=== PATIENT | male | born 1960 | race Hispanic/Latino ===

== ENCOUNTER 2019-12-27 18:03 | Emergency (ER) | payer SELFPAY | END 2019-12-27 20:35 | disposition home or self-care (01) | LOC: EDH 18:03 | DX: R50.9 Fever, unspecified (principal); R05 Cough; J02.9 Acute pharyngitis, unspecified ==

== ENCOUNTER 2024-04-15 20:17 | Inpatient (IN) | payer BC ==
[~2024-04-15] VITALS: Ht 172.7 cm; Wt 81.4 kg
[2024-04-15] MEDS: LACTATED RINGERS 1000ML 1,000 ML IV ONE (20:52)
[2024-04-15 20:55] LABS: BASOPHILS # (AUTO) 0.06 K/uL (0.00-0.20); BASOPHILS % (AUTO) 0.7 % (0.0-5.0); EOSINOPHILS # (AUTO) 0.46 K/uL (0.00-0.70); EOSINOPHILS % (AUTO) 5.6 % (0.0-8.0); HEMATOCRIT 48.1 % (42-54); IMMATURE GRANULOCYTE ABSOLUTE 0.07 K/uL (0-1); LYMPHOCYTES # (AUTO) 2.5 K/uL (1.0-4.8); LYMPHOCYTES % (AUTO) 30.6 % (21.0-51.0); MEAN CORPUSCULAR HEMOGLOBIN 30.8 pg (27.0-33.0); MEAN CORPUSCULAR HGB CONC 33.3 g/dL (32.0-36.0); MEAN CORPUSCULAR VOLUME 92.7 fL (79-99); MONOCYTES # (AUTO) 0.8 K/uL (0.1-1.0); MONOCYTES % (AUTO) 9.5 % (3.0-13.0); NEUTROPHILS # (AUTO) 4.3 K/uL (1.8-7.7); NEUTROPHILS % (AUTO) 52.7 % (40.0-77.0); PLATELET COUNT (AUTO) 257 K/uL (130-400); RED BLOOD CELL COUNT(AUTO) 5.19 MIL/uL (4.50-6.20); RED CELL DISTRIBUTION WIDTH 13.1 % (11.0-15.5); WHITE BLOOD COUNT (AUTO) 8.2 K/uL (4.8-10.8)
[2024-04-15 21:04] LABS: INR 1.07 (0.85-1.15); PROTHROMBIN TIME 11.5 SEC (9.6-11.6)
[2024-04-15 21:05] LABS: PARTIAL THROMBOPLASTIN TIME 27.3 SEC (26.3-35.5)
[2024-04-15 21:07] LABS: CREATININE 1.1 mg/dL (0.5-1.3); MAGNESIUM 1.7 mg/dL (1.80-2.40)
[2024-04-15 21:19] LABS: B-TYPE NATRIURETIC PEPTIDE 210 pg/mL (0-100)
[2024-04-15 21:34] LABS: APPEARANCE,URINE CLEAR (CLEAR); BILIRUBIN,URINE NEGATIVE (NEGATIVE); COLOR,URINE LIGHT-YELLOW (YELLOW); GLUCOSE, URINE (UA) NEGATIVE (NEGATIVE); KETONES,URINE NEGATIVE (NEGATIVE); LEUKOCYTE ESTERASE ,URINE 25 Leu/uL (NEGATIVE); NITRATE,URINE NEGATIVE (NEGATIVE); PROTEIN,URINE NEGATIVE (NEGATIVE); UROBILINOGEN,URINE 0.2 mg/dL (0.2-1.0)
[2024-04-15 21:35] LABS: ADD UA MICROSCOPIC YES
[2024-04-15 21:36] LABS: RBC,URINE 0-1 /HPF (0-1); SQUAMOUS EPITHELIAL CELL,UR RARE /HPF (0-2)
[2024-04-15] MEDS: diazePAM 5 MG/ML 2 ML SYG IV STA (21:40)
[2024-04-15 21:41] LABS: AMPHET/METH SCREEN,URINE NEGATIVE (NEGATIVE); BARBITURATE SCREEN, URINE NEGATIVE (NEGATIVE); BENZODIAZEPINES SCREEN,URINE POSITIVE (NEGATIVE); CANNABINOID SCREEN,URINE POSITIVE (NEGATIVE); COCAINE SCREEN,URINE NEGATIVE (NEGATIVE); OPIATE SCREEN,URINE NEGATIVE (NEGATIVE); PHENCYCLIDINE SCREEN,URINE NEGATIVE (NEGATIVE)
[2024-04-15] MEDS: 0.9%NACL 1000ML 1,000 ML IV ONE (22:42)
[2024-04-15] MEDS: metoPROLOL tartRATE 1 MG/ML 5ML VIAL IV ONE (22:58)
[2024-04-16] MEDS ORDERED: PoTASSium chloRIDE 20MEQ/100ML 100 ML IV PRN
[2024-04-16] MEDS ORDERED: acetaMINOPHEN 325 MG TAB PO PRN
[2024-04-16] MEDS ORDERED: NITROGLYCERIN 0.4 MG SL TAB SL PRN
[2024-04-16] MEDS ORDERED: PoTASSium chl 10% ELIXIR 20MEQ 20 MEQ/15 ML UDCUP PO PRN
[2024-04-16] MEDS ORDERED: guaiFENesin-DM 200/20MG 10ML PO PRN
[2024-04-16 00:04] LABS: SARS-CoV-2, RNA, NAAT NEGATIVE SARS CoV-2 (NEGATIVE)
[2024-04-16 00:08] LABS: INFLUENZA TYPE A Negative For Type A (NEGATIVE); INFLUENZA TYPE B Negative For Type B (NEGATIVE)
[2024-04-16] MEDS: ALPRAZolam 1 MG TAB PO ONE (00:19)
[2024-04-16] MEDS: ALPRAZolam 0.5 MG TABLET PO ONE (00:44)
[2024-04-16] MEDS: FAMOTIDINE 20MG TAB PO SCH (07:32)
[2024-04-16] MEDS: furoSEMIDE 20MG VIAL IV SCH (07:32)
[2024-04-16 08:29] LABS: BASOPHILS # (AUTO) 0.05 K/uL (0.00-0.20); BASOPHILS % (AUTO) 0.6 % (0.0-5.0); EOSINOPHILS % (AUTO) 5.2 % (0.0-8.0); HEMATOCRIT 48.8 % (42-54); IMMATURE GRANULOCYTE ABSOLUTE 0.07 K/uL (0-1); LYMPHOCYTES # (AUTO) 2.6 K/uL (1.0-4.8); MEAN CORPUSCULAR HEMOGLOBIN 30.9 pg (27.0-33.0); MEAN CORPUSCULAR HGB CONC 33.6 g/dL (32.0-36.0); MEAN CORPUSCULAR VOLUME 91.9 fL (79-99); MONOCYTES # (AUTO) 0.7 K/uL (0.1-1.0); NEUTROPHILS % (AUTO) 51.3 % (40.0-77.0); PLATELET COUNT (AUTO) 262 K/uL (130-400); RED BLOOD CELL COUNT(AUTO) 5.31 MIL/uL (4.50-6.20); WHITE BLOOD COUNT (AUTO) 7.8 K/uL (4.8-10.8)
[2024-04-16 08:38] LABS: HEMOGLOBIN A1C 5.5 % (4.0-6.0)
[2024-04-16 08:54] LABS: ALBUMIN 3.7 g/dL (3.5-5.0); BILIRUBIN,TOTAL 0.5 mg/dL (0.2-1.0); CREATININE 1.2 mg/dL (0.5-1.3); MAGNESIUM 1.8 mg/dL (1.80-2.40); POTASSIUM 4.4 mmol/L (3.5-5.1); THYROID STIMULATING HORMONE 2.15 uIU/mL (0.36-3.74)
[2024-04-16 08:58] LABS: B-TYPE NATRIURETIC PEPTIDE 274 pg/mL (0-100)
[2024-04-16] MEDS: metoPROLOL tartRATE 25 MG TAB PO ONE (10:12)
[2024-04-16] MEDS: ALPRAZolam 0.25 MG TABLET PO ONE (13:22)
[2024-04-16 13:33] LABS: MAGNESIUM 1.8 mg/dL (1.80-2.40); POTASSIUM 4.1 mmol/L (3.5-5.1)
[2024-04-16 14:14] LABS: ABG BASE EXCESS -0.8 mmol/L (-2.0-3.0); ABG HCO3 22.6 mmol/L (21.0-28.0); ABG OXYGEN SATURATION 95.6 % (94.0-98.0); ABG PCO2 34 mmHg (35-48); ABG PH 7.439 (7.350-7.450); PO2, ARTERIAL BG 75.1 mmHg (83.0-108.0); VENT MODE, BG RA (ROOM AIR)
[2024-04-16] MEDS: 0.9%NACL 1000ML 1,000 ML IV ONE (18:17)
[2024-04-16] MEDS: metoPROLOL tartRATE 25 MG TAB PO SCH (18:17)
[2024-04-16] MEDS: ALPRAZolam 0.25 MG TABLET PO PRN (19:23)
[2024-04-16] MEDS ORDERED: ALPRAZolam 0.25 MG TABLET PO SCH (21:00)
[2024-04-16] MEDS ORDERED: metoPROLOL tartRATE 25 MG TAB PO SCH (21:00)
[2024-04-16 21:40] VITALS: BP 134/75; PULSE 42; RESP 20; TEMP 98.2
[2024-04-16] MEDS: APIXaban 2.5 MG TABLET PO SCH (21:51)
[2024-04-17] VITALS (8 sets, daily range): BP systolic 98–123; BP diastolic 47–63; PULSE 45–111; RESP 18–20; TEMP 97.3–98.2; O2SAT 96–98
[2024-04-17] MEDS: ondanSETRON 4MG INJ IV PRN (03:07)
[2024-04-17 05:07] LABS: HEMATOCRIT 44.8 % (42-54); MEAN CORPUSCULAR HEMOGLOBIN 31.1 pg (27.0-33.0); MEAN CORPUSCULAR HGB CONC 33.3 g/dL (32.0-36.0); MEAN CORPUSCULAR VOLUME 93.5 fL (79-99); RED BLOOD CELL COUNT(AUTO) 4.79 MIL/uL (4.50-6.20); RED CELL DISTRIBUTION WIDTH 12.9 % (11.0-15.5); WHITE BLOOD COUNT (AUTO) 7.4 K/uL (4.8-10.8)
[2024-04-17] MEDS: metoPROLOL tartRATE 50 MG TAB PO SCH (05:18)
[2024-04-17 05:25] LABS: ALBUMIN 3.1 g/dL (3.5-5.0); BILIRUBIN,TOTAL 0.3 mg/dL (0.2-1.0); CREATININE 1.4 mg/dL (0.5-1.3); MAGNESIUM 1.7 mg/dL (1.80-2.40); POTASSIUM 3.7 mmol/L (3.5-5.1); TOTAL PROTEIN, SERUM 6.9 g/dL (6.0-8.3)
[2024-04-17] MEDS: acetaMINOPHEN 325 MG TAB PO PRN (06:10)
[2024-04-17] MEDS: ALPRAZolam 0.5 MG TABLET PO ONE (06:18)
[2024-04-17] MEDS: PoTASSium chloRIDE 20MEQ ER 20 MEQ ERTAB PO PRN (08:28)
[2024-04-17] MEDS: MAGNESIUM 2GM PREMIX 50ML 50 ML IV PRN (08:29)
[2024-04-17] MEDS ORDERED: ALPRAZolam 0.5 MG TABLET PO PRN (10:00)
[2024-04-17] MEDS: ALPRAZolam 0.5 MG TABLET PO PRN (10:18)
[2024-04-17] MEDS: ALPRAZolam 0.5 MG TABLET ONE (11:02)
[2024-04-17] MEDS: NICOTINE 21 MG/ 24 HR PATCH TD ONE (15:05)
[2024-04-17] MEDS: dilTIAZem 60MG TAB PO SCH (16:59)
[2024-04-17] MEDS: APIXaban 5 MG TABLET PO SCH (19:53)
[2024-04-18] VITALS (8 sets, daily range): BP systolic 99–125; BP diastolic 57–72; PULSE 42–101; RESP 16–20; TEMP 97.5–98.3; O2SAT 97–98
[2024-04-18 04:56] LABS: HEMATOCRIT 44.5 % (42-54); MEAN CORPUSCULAR HGB CONC 32.8 g/dL (32.0-36.0); MEAN CORPUSCULAR VOLUME 94.5 fL (79-99); RED BLOOD CELL COUNT(AUTO) 4.71 MIL/uL (4.50-6.20); RED CELL DISTRIBUTION WIDTH 12.9 % (11.0-15.5); WHITE BLOOD COUNT (AUTO) 6.5 K/uL (4.8-10.8)
[2024-04-18 05:32] LABS: ALBUMIN 3.1 g/dL (3.5-5.0); BILIRUBIN,TOTAL 0.3 mg/dL (0.2-1.0); CREATININE 1.1 mg/dL (0.5-1.3); POTASSIUM 4.1 mmol/L (3.5-5.1); TOTAL PROTEIN, SERUM 6.8 g/dL (6.0-8.3)
[2024-04-18] MEDS: NICOTINE 21 MG/ 24 HR PATCH TD SCH (09:07)
[2024-04-18] MEDS: ALPRAZolam 0.5 MG TABLET PO PRN (20:19)
[2024-04-18] MEDS: dilTIAZem 120MG SR CAP PO SCH (20:19)
[2024-04-19] VITALS: BP 112/66; PULSE 101; RESP 20; TEMP 98
[2024-04-19] MEDS: ALPRAZolam 0.5 MG TABLET PO STA (00:48)
[2024-04-19 04:39] VITALS: BP 93/49; PULSE 96; RESP 20; TEMP 98.4
[2024-04-19 04:42] LABS: CREATININE 1.2 mg/dL (0.5-1.3); MAGNESIUM 1.8 mg/dL (1.80-2.40)
[2024-04-19 07:45] VITALS: BP 119/73; PULSE 78; RESP 19; TEMP 98.2
[2024-04-19 08:00] VITALS: O2SAT 98
[2024-04-19] MEDS: metOPROLol sucCINATE 50 MG TAB.SR.24H PO SCH (08:50)
[2024-04-19 11:29] VITALS: BP 100/57; PULSE 62; RESP 17; TEMP 98.8
[2024-04-19] MEDS ORDERED: METO50TA9 PO (15:05)
[2024-04-19] MEDS ORDERED: APIX5TAB PO (15:05)
[2024-04-19] MEDS ORDERED: DILT120C89 PO (15:05)
[2024-04-19] MEDS ORDERED: PARO-159 PO (15:05)
[2024-04-19 15:34] VITALS: BP 121/72; PULSE 45; RESP 18; TEMP 97.8
== END 2024-04-19 16:00 | disposition home or self-care (01) | DRG 308 ==
LOC: EDH 20:17 → EDHIP 23:36 → 4BH 04-16 17:03
PROVIDERS: ADMIT Hospitalist; ATTEND Hospitalist
DX: I48.92 Unspecified atrial flutter (principal); I50.23 Acute on chronic systolic (congestive) heart failure; N17.9 Acute kidney failure, unspecified; F41.9 Anxiety disorder, unspecified; F14.90 Cocaine use, unspecified, uncomplicated; F19.10 Other psychoactive substance abuse, uncomplicated; Z20.822 Contact with and (suspected) exposure to COVID-19; F17.210 Nicotine dependence, cigarettes, uncomplicated; F31.9 Bipolar disorder, unspecified; I45.9 Conduction disorder, unspecified; J44.9 Chronic obstructive pulmonary disease, unspecified; Z79.01 Long term (current) use of anticoagulants; I25.2 Old myocardial infarction; Z82.49 Family history of ischemic heart disease and other diseases of the circulatory system; Z83.3 Family history of diabetes mellitus
CPT/HCPCS: 36415; 36600; 71045; 71270; 80048; 80053; 80061; 80305; 81001; 82550; 82803; 83036; 83735; 83880; 84443; 84484; 85025; 85027; 85378; 85610; 85730; 87635; 87804; 93005; 93306; G0378; J1940; J2405; J3360; J3475; J3490; J7030

== ENCOUNTER 2024-04-23 19:33 | Inpatient (IN) | payer BC ==
[~2024-04-23] VITALS: Ht 175.3 cm; Wt 91.9 kg
[~2024-04-23 19:33] MED LIST: APIX5TAB PO; DILT120C89 PO; METO50TA9 PO; PARO-159 PO
[2024-04-23] MEDS: NOREPINEPHRIN 4MG/NS 250ML 250 ML IV SCH (20:13)
[2024-04-23 20:17] LABS: BASOPHILS # (AUTO) 0.03 K/uL (0.00-0.20); BASOPHILS % (AUTO) 0.4 % (0.0-5.0); EOSINOPHILS # (AUTO) 0.21 K/uL (0.00-0.70); EOSINOPHILS % (AUTO) 2.5 % (0.0-8.0); HEMATOCRIT 42.3 % (42-54); IMMATURE GRANULOCYTE ABSOLUTE 0.05 K/uL (0-1); LYMPHOCYTES # (AUTO) 2.1 K/uL (1.0-4.8); LYMPHOCYTES % (AUTO) 25.6 % (21.0-51.0); MEAN CORPUSCULAR HEMOGLOBIN 30.7 pg (27.0-33.0); MEAN CORPUSCULAR HGB CONC 33.1 g/dL (32.0-36.0); MEAN CORPUSCULAR VOLUME 92.8 fL (79-99); MONOCYTES # (AUTO) 0.7 K/uL (0.1-1.0); MONOCYTES % (AUTO) 8.1 % (3.0-13.0); NEUTROPHILS # (AUTO) 5.2 K/uL (1.8-7.7); NEUTROPHILS % (AUTO) 62.8 % (40.0-77.0); PLATELET COUNT (AUTO) 205 K/uL (130-400); RED BLOOD CELL COUNT(AUTO) 4.56 MIL/uL (4.50-6.20); RED CELL DISTRIBUTION WIDTH 12.9 % (11.0-15.5); WHITE BLOOD COUNT (AUTO) 8.3 K/uL (4.8-10.8)
[2024-04-23 20:22] LABS: INR 1.17 (0.85-1.15); PROTHROMBIN TIME 12.5 SEC (9.6-11.6)
[2024-04-23 20:24] LABS: CARBON DIOXIDE 21 mmol/L (21-32); CHLORIDE 103 mmol/L (101-111); CREATININE 1.4 mg/dL (0.5-1.3); GLOMERULAR FILTR. RATE CALC 56 mL/min (>90); GLUCOSE,RANDOM 149 mg/dL (70-105); PARTIAL THROMBOPLASTIN TIME 28.6 SEC (26.3-35.5); SODIUM SERUM 135 mmol/L (136-145); UREA NITROGEN, BLOOD 25 mg/dL (7-18)
[2024-04-23 20:33] LABS: ALCOHOL, BLOOD < 3 mg/dL (0-10); CREATINE KINASE, TOTAL 80 U/L (21-232)
[2024-04-23] MEDS: ondanSETRON 4MG INJ ONE (20:54)
[2024-04-23] MEDS: ondanSETRON 4MG INJ IVP ONE (20:54)
[2024-04-23 20:58] LABS: B-TYPE NATRIURETIC PEPTIDE 776 pg/mL (0-100)
[2024-04-23] MEDS: furoSEMIDE 20MG VIAL IV ONE (21:40)
[2024-04-23 21:57] LABS: ABG BASE EXCESS -5.9 mmol/L (-2.0-3.0); ABG HCO3 16.7 mmol/L (21.0-28.0); ABG OXYGEN SATURATION 95.7 % (94.0-98.0); ABG PCO2 26 mmHg (35-48); ABG PH 7.422 (7.350-7.450); CARBON MONOXIDE 0.6 % (0.5-1.5); HHb 4.3; PO2, ARTERIAL BG 79.9 mmHg (83.0-108.0); VENT MODE, BG ROOMAIR (ROOM AIR)
[2024-04-23 22:12] VITALS: PULSE 66; RESP 28
[2024-04-23] MEDS: IpraTROPium/alBUTERol SULFATE 3 ML SOLUTION IH ONE (22:13)
[2024-04-23 23:56] LABS: APPEARANCE,URINE CLOUDY (CLEAR); BILIRUBIN,URINE NEGATIVE (NEGATIVE); COLOR,URINE YELLOW (YELLOW); GLUCOSE, URINE (UA) NEGATIVE (NEGATIVE); KETONES,URINE NEGATIVE (NEGATIVE); LEUKOCYTE ESTERASE ,URINE 75 Leu/uL (NEGATIVE); NITRATE,URINE NEGATIVE (NEGATIVE); PH,URINE 5.5 (5.0-8.0); PROTEIN,URINE 70 mg/dL (NEGATIVE)
[2024-04-23 23:58] LABS: ADD UA MICROSCOPIC YES
[2024-04-24] VITALS (97 sets, daily range): BP systolic 78–127; BP diastolic 23–81; PULSE 66–100; RESP 8–73; TEMP 96.9–98; O2SAT 95–100
[2024-04-24 00:04] LABS: AMPHET/METH SCREEN,URINE POSITIVE (NEGATIVE); BACTERIA,URINE FEW /HPF (None Seen); BARBITURATE SCREEN, URINE NEGATIVE (NEGATIVE); BENZODIAZEPINES SCREEN,URINE POSITIVE (NEGATIVE); CANNABINOID SCREEN,URINE POSITIVE (NEGATIVE); COCAINE SCREEN,URINE NEGATIVE (NEGATIVE); MUCUS,URINE RARE LPF (None Seen); OPIATE SCREEN,URINE NEGATIVE (NEGATIVE); OTHER CASTS, URINE 1 /LPF (None Seen); PHENCYCLIDINE SCREEN,URINE NEGATIVE (NEGATIVE); SQUAMOUS EPITHELIAL CELL,UR RARE /HPF (0-2)
[2024-04-24] MEDS: furoSEMIDE 40MG VIAL IV SCH (00:06)
[2024-04-24] MEDS ORDERED: ondanSETRON 4MG INJ IVP PRN (00:30)
[2024-04-24] MEDS ORDERED: doCUSate SODIUM 100 MG CAP PO PRN (00:30)
[2024-04-24] MEDS ORDERED: acetaMINOPHEN 650 MG SUPPOSITORY RC PRN (00:30)
[2024-04-24] MEDS ORDERED: LACTULOSE 20 GM/30 ML UDCUP PO PRN (00:30)
[2024-04-24] MEDS: IpraTROPium/alBUTERol SULFATE 3 ML SOLUTION IH SCH (00:47)
[2024-04-24] MEDS: LORazepam 2 MG/ML 1 ML VIAL IVP PRN (01:00)
[2024-04-24] MEDS: dexmedeTOMIDine 400MCG/NS100ML IV SCH (02:25)
[2024-04-24] MEDS ORDERED: 0.9%NACL 50ML IV SCH (06:00)
[2024-04-24] MEDS: ZOSYN 3.375GM +NS 50ML IVPB SCH (06:34)
[2024-04-24] MEDS: LACTATED RINGERS 1000ML 1,000 ML IV SCH (06:34)
[2024-04-24 06:55] LABS: BASOPHILS # (AUTO) 0.04 K/uL (0.00-0.20); BASOPHILS % (AUTO) 0.3 % (0.0-5.0); EOSINOPHILS # (AUTO) 0.18 K/uL (0.00-0.70); EOSINOPHILS % (AUTO) 1.5 % (0.0-8.0); LYMPHOCYTES % (AUTO) 33.2 % (21.0-51.0); MEAN CORPUSCULAR HEMOGLOBIN 30.7 pg (27.0-33.0); MEAN CORPUSCULAR VOLUME 93.1 fL (79-99); MONOCYTES # (AUTO) 1.3 K/uL (0.1-1.0); MONOCYTES % (AUTO) 10.7 % (3.0-13.0); NEUTROPHILS # (AUTO) 6.4 K/uL (1.8-7.7); NEUTROPHILS % (AUTO) 53.5 % (40.0-77.0); PLATELET COUNT (AUTO) 241 K/uL (130-400); RED BLOOD CELL COUNT(AUTO) 4.62 MIL/uL (4.50-6.20); RED CELL DISTRIBUTION WIDTH 13.1 % (11.0-15.5); WHITE BLOOD COUNT (AUTO) 11.9 K/uL (4.8-10.8)
[2024-04-24 07:02] LABS: CREATININE 1.5 mg/dL (0.5-1.3); POTASSIUM 4.3 mmol/L (3.5-5.1)
[2024-04-24] MEDS: INSULIN humuLIN R 100 UNIT/ML 3ML SQ SCH (07:30)
[2024-04-24 07:32] LABS: B-TYPE NATRIURETIC PEPTIDE 753 pg/mL (0-100)
[2024-04-24] MEDS ORDERED: acetaMINOPHEN 500 MG TABLET PO PRN (10:00)
[2024-04-24] MEDS ORDERED: PHARMACY COMMUNICATION MISC PRN (10:00)
[2024-04-24] MEDS ORDERED: ondanSETRON 4MG INJ IV PRN (10:00)
[2024-04-24] MEDS ORDERED: HEParin 25,000 UNITS/250ML D5W 250 ML IV SCH (10:00)
[2024-04-24 10:01] LABS: INFLUENZA TYPE A Negative For Type A (NEGATIVE); INFLUENZA TYPE B Negative For Type B (NEGATIVE)
[2024-04-24 10:51] LABS: MAGNESIUM 1.8 mg/dL (1.80-2.40)
[2024-04-24] MEDS: HEParin 25,000 UNITS/250ML D5W 250 ML IV SCH (10:59)
[2024-04-24] MEDS: MAGNESIUM 2GM PREMIX 50ML 50 ML IV PRN (11:41)
[2024-04-24] MEDS: miDODRine HCL 5 MG TABLET PO PRN (13:45)
[2024-04-24] MEDS ORDERED: PHARMACY COMMUNICATION MISC SCH (17:00)
[2024-04-24] MEDS: dilTIAZem 120MG SR CAP PO SCH (21:00)
[2024-04-25] VITALS (59 sets, daily range): BP systolic 90–146; BP diastolic 39–89; PULSE 13–144; RESP 5–63; TEMP 97.4–98.5; O2SAT 91–96
[2024-04-25 03:56] LABS: BASOPHILS # (AUTO) 0.05 K/uL (0.00-0.20); BASOPHILS % (AUTO) 0.6 % (0.0-5.0); EOSINOPHILS # (AUTO) 0.28 K/uL (0.00-0.70); EOSINOPHILS % (AUTO) 3.2 % (0.0-8.0); HEMATOCRIT 41.4 % (42-54); IMMATURE GRANULOCYTE ABSOLUTE 0.05 K/uL (0-1); LYMPHOCYTES # (AUTO) 2.4 K/uL (1.0-4.8); LYMPHOCYTES % (AUTO) 27.1 % (21.0-51.0); MEAN CORPUSCULAR HEMOGLOBIN 30.7 pg (27.0-33.0); MEAN CORPUSCULAR HGB CONC 32.9 g/dL (32.0-36.0); MEAN CORPUSCULAR VOLUME 93.5 fL (79-99); MONOCYTES # (AUTO) 0.6 K/uL (0.1-1.0); MONOCYTES % (AUTO) 6.8 % (3.0-13.0); NEUTROPHILS # (AUTO) 5.4 K/uL (1.8-7.7); NEUTROPHILS % (AUTO) 61.7 % (40.0-77.0); PLATELET COUNT (AUTO) 186 K/uL (130-400); RED BLOOD CELL COUNT(AUTO) 4.43 MIL/uL (4.50-6.20); RED CELL DISTRIBUTION WIDTH 12.9 % (11.0-15.5); WHITE BLOOD COUNT (AUTO) 8.7 K/uL (4.8-10.8)
[2024-04-25 04:27] LABS: CREATININE 1.4 mg/dL (0.5-1.3); MAGNESIUM 1.8 mg/dL (1.80-2.40); PHOSPHORUS 3.7 mg/dL (2.5-4.9); POTASSIUM 3.7 mmol/L (3.5-5.1)
[2024-04-25] MEDS: MULTIVITAMIN TABLET PO SCH (07:43)
[2024-04-25] MEDS: PoTASSium chl 10% ELIXIR 20MEQ 20 MEQ/15 ML UDCUP ONE (07:43)
[2024-04-25] MEDS: FOLic ACID 1 MG TABLET PO SCH (07:43)
[2024-04-25] MEDS: THIAMINE HCL 100 MG/ML 2ML VIAL IM SCH (07:44)
[2024-04-25] MEDS: AMIOdarone 900MG VIAL 150 MG in DEXTROSE 5%-WATER 100 ML IV SCH ×2 (08:29→11:35)
[2024-04-25] MEDS ORDERED: AMIOdarone 900MG VIAL 540 MG in DEXTROSE 5%-WATER 300 ML IV SCH (08:30)
[2024-04-25] MEDS: AMIOdarone 900MG VIAL 360 MG in DEXTROSE 5%-WATER 200 ML IV SCH (08:48)
[2024-04-25] MEDS: PAROXETINE HCL 10 MG PO SCH (08:59)
[2024-04-25] MEDS: miDODRine HCL 5 MG TABLET PO SCH (10:51)
[2024-04-25] MEDS: LORazepam 2 MG/ML 1 ML VIAL IVP PRN ×2 (11:28→20:47)
[2024-04-25] MEDS: IpraTROPium 0.5 MG/2.5 ML INH IH SCH (12:00)
[2024-04-26] VITALS (15 sets, daily range): BP systolic 112–145; BP diastolic 60–80; PULSE 66–149; RESP 2–22; TEMP 98–98.8; O2SAT 93–98
[2024-04-26 04:05] LABS: BASOPHILS # (AUTO) 0.03 K/uL (0.00-0.20); BASOPHILS % (AUTO) 0.4 % (0.0-5.0); EOSINOPHILS # (AUTO) 0.31 K/uL (0.00-0.70); EOSINOPHILS % (AUTO) 4.2 % (0.0-8.0); HEMATOCRIT 38.3 % (42-54); IMMATURE GRANULOCYTE ABSOLUTE 0.06 K/uL (0-1); LYMPHOCYTES # (AUTO) 1.9 K/uL (1.0-4.8); LYMPHOCYTES % (AUTO) 25.9 % (21.0-51.0); MEAN CORPUSCULAR HEMOGLOBIN 30.8 pg (27.0-33.0); MEAN CORPUSCULAR HGB CONC 33.4 g/dL (32.0-36.0); MEAN CORPUSCULAR VOLUME 92.1 fL (79-99); MONOCYTES # (AUTO) 0.7 K/uL (0.1-1.0); MONOCYTES % (AUTO) 9.5 % (3.0-13.0); NEUTROPHILS # (AUTO) 4.4 K/uL (1.8-7.7); NEUTROPHILS % (AUTO) 59.2 % (40.0-77.0); PLATELET COUNT (AUTO) 160 K/uL (130-400); RED BLOOD CELL COUNT(AUTO) 4.16 MIL/uL (4.50-6.20); RED CELL DISTRIBUTION WIDTH 13.1 % (11.0-15.5); WHITE BLOOD COUNT (AUTO) 7.4 K/uL (4.8-10.8)
[2024-04-26 04:18] LABS: INR 1.16 (0.85-1.15); PROTHROMBIN TIME 12.4 SEC (9.6-11.6)
[2024-04-26 04:19] LABS: PARTIAL THROMBOPLASTIN TIME 37.2 SEC (26.3-35.5)
[2024-04-26 04:20] LABS: ALBUMIN 2.9 g/dL (3.5-5.0); BILIRUBIN,TOTAL 0.5 mg/dL (0.2-1.0); CREATININE 1.3 mg/dL (0.5-1.3); PHOSPHORUS 2.7 mg/dL (2.5-4.9); POTASSIUM 3.3 mmol/L (3.5-5.1); TOTAL PROTEIN, SERUM 6.4 g/dL (6.0-8.3)
[2024-04-26] MEDS: acetaMINOPHEN 325 MG TAB PO PRN (04:55)
[2024-04-26] MEDS: HEParin 5,000 UNIT VIAL IV PRN (05:27)
[2024-04-26] MEDS ORDERED: PoTASSium chloRIDE 20MEQ/100ML 100 ML IV PRN (07:00)
[2024-04-26] MEDS ORDERED: PoTASSium chl 10% ELIXIR 20MEQ 20 MEQ/15 ML UDCUP PO PRN (07:00)
[2024-04-26] MEDS: metOPROLol sucCINATE 25 MG TAB.SR.24H PO SCH (09:00)
[2024-04-26] MEDS: metOPROLol sucCINATE 25 MG TAB.SR.24H PO ONE (11:06)
[2024-04-26] MEDS: metoPROLOL tartRATE 1 MG/ML 5ML VIAL IV ONE (13:22)
[2024-04-26] MEDS: metoPROLOL tartRATE 25 MG TAB PO SCH (13:26)
[2024-04-26] MEDS ORDERED: metOPROLol sucCINATE 25 MG TAB.SR.24H PO SCH (14:00)
[2024-04-26] MEDS: chlordiazePOXIDE HCL 25 MG CAP PO PRN ×2 (14:48→17:52)
[2024-04-26] MEDS: PoTASSium chloRIDE 20MEQ ER 20 MEQ ERTAB PO PRN (17:51)
[2024-04-26] MEDS: chlordiazePOXIDE HCL 25 MG CAP PO SCH (21:26)
[2024-04-27] VITALS (14 sets, daily range): BP systolic 117–149; BP diastolic 55–84; PULSE 43–137; RESP 18–22; TEMP 98.2–98.6; O2SAT 94–98
[2024-04-27] MEDS: LORazepam 2 MG/ML 1 ML VIAL IVP ONE (03:19)
[2024-04-27 07:16] LABS: HEMATOCRIT 42.2 % (42-54); MEAN CORPUSCULAR HEMOGLOBIN 31.4 pg (27.0-33.0); MEAN CORPUSCULAR HGB CONC 33.6 g/dL (32.0-36.0); MEAN CORPUSCULAR VOLUME 93.4 fL (79-99); RED BLOOD CELL COUNT(AUTO) 4.52 MIL/uL (4.50-6.20); WHITE BLOOD COUNT (AUTO) 7.2 K/uL (4.8-10.8)
[2024-04-27 07:31] LABS: BILIRUBIN,TOTAL 0.4 mg/dL (0.2-1.0); CREATININE 1.1 mg/dL (0.5-1.3); PHOSPHORUS 2.7 mg/dL (2.5-4.9); POTASSIUM 3.7 mmol/L (3.5-5.1); TOTAL PROTEIN, SERUM 6.8 g/dL (6.0-8.3)
[2024-04-27] MEDS: AMIOdarone 200 MG TABLET PO SCH (08:48)
[2024-04-27] MEDS: APIXaban 5 MG TABLET PO SCH (08:50)
[2024-04-27] MEDS: metOPROLol sucCINATE 50 MG TAB.SR.24H PO SCH (08:50)
[2024-04-27 13:03] LABS: INR 1.16 (0.85-1.15); PROTHROMBIN TIME 12.4 SEC (9.6-11.6)
[2024-04-27] MEDS: chlordiazePOXIDE HCL 25 MG CAP PO ONE (13:19)
[2024-04-27] MEDS: TEMAZepam 15 MG CAPSULE PO PRN (22:08)
[2024-04-27] MEDS: PROMETHAZINE HCL 25 MG TABLET PO PRN (22:09)
[2024-04-28] VITALS (11 sets, daily range): BP systolic 96–151; BP diastolic 57–94; PULSE 43–84; RESP 18–22; TEMP 97.1–98.8; O2SAT 96–99
[2024-04-28 03:37] LABS: HEMATOCRIT 44.1 % (42-54); MEAN CORPUSCULAR HEMOGLOBIN 30.5 pg (27.0-33.0); MEAN CORPUSCULAR HGB CONC 33.1 g/dL (32.0-36.0); MEAN CORPUSCULAR VOLUME 92.3 fL (79-99); RED BLOOD CELL COUNT(AUTO) 4.78 MIL/uL (4.50-6.20); WHITE BLOOD COUNT (AUTO) 6.6 K/uL (4.8-10.8)
[2024-04-28] MEDS: NICOTINE 21 MG/ 24 HR PATCH TD PRN (03:45)
[2024-04-28 04:01] LABS: ALBUMIN 3.3 g/dL (3.5-5.0); BILIRUBIN,TOTAL 0.4 mg/dL (0.2-1.0); CREATININE 1.2 mg/dL (0.5-1.3); MAGNESIUM 1.8 mg/dL (1.80-2.40); POTASSIUM 3.5 mmol/L (3.5-5.1); TOTAL PROTEIN, SERUM 7.4 g/dL (6.0-8.3)
[2024-04-28] MEDS: NICOTINE 21 MG/ 24 HR PATCH TD SCH (13:30)
[2024-04-28] MEDS: LORazepam 2 MG/ML 1 ML VIAL IVP PRN (17:11)
[2024-04-28] MEDS: furoSEMIDE 20 MG TABLET PO SCH (17:11)
[2024-04-29] VITALS: BP 114/85; PULSE 76; RESP 21; TEMP 98
[2024-04-29 04:00] VITALS: BP 108/56; PULSE 68; RESP 21; TEMP 98
[2024-04-29 07:31] VITALS: PULSE 60; RESP 20
[2024-04-29 07:34] VITALS: PULSE 60; RESP 20; O2SAT 100
[2024-04-29 08:00] VITALS: O2SAT 98
[2024-04-29] MEDS: metOPROLol sucCINATE 50 MG TAB.SR.24H PO SCH (08:24)
[2024-04-29 08:30] VITALS: BP 143/76; PULSE 69; RESP 18; TEMP 98.3
[2024-04-29] MEDS ORDERED: FURO20TA6 PO (13:17)
[2024-04-29] MEDS ORDERED: APIX5TAB PO (13:17)
[2024-04-29] MEDS ORDERED: AMIO200T44 PO (13:17)
[2024-04-29] MEDS ORDERED: METO50TA9 PO (13:17)
[2024-04-29] MEDS ORDERED: NICO-777 TD (13:17)
== END 2024-04-29 14:40 | disposition home or self-care (01) | DRG 871 ==
LOC: EDH 19:33 → EDHIP 22:31 → 2BH 04-24 01:18 → 2DH 04-25 12:50
PROVIDERS: ADMIT Internal Medicine; ATTEND Internal Medicine
DX: A41.9 Sepsis, unspecified organism (principal); I50.43 Acute on chronic combined systolic (congestive) and diastolic (congestive) heart failure; R65.21 Severe sepsis with septic shock; E87.1 Hypo-osmolality and hyponatremia; I13.0 Hypertensive heart and chronic kidney disease with heart failure and stage 1 through stage 4 chronic kidney disease, or unspecified chronic kidney disease; J44.1 Chronic obstructive pulmonary disease with (acute) exacerbation; N30.00 Acute cystitis without hematuria; N17.9 Acute kidney failure, unspecified; F15.20 Other stimulant dependence, uncomplicated; I48.92 Unspecified atrial flutter; I47.20 Ventricular tachycardia, unspecified; I95.9 Hypotension, unspecified; N18.9 Chronic kidney disease, unspecified; I48.91 Unspecified atrial fibrillation; F41.9 Anxiety disorder, unspecified; H57.04 Mydriasis; E83.51 Hypocalcemia; E83.42 Hypomagnesemia; E86.0 Dehydration; R73.9 Hyperglycemia, unspecified; F17.210 Nicotine dependence, cigarettes, uncomplicated; F19.10 Other psychoactive substance abuse, uncomplicated; E66.9 Obesity, unspecified; Z79.01 Long term (current) use of anticoagulants; Z79.899 Other long term (current) drug therapy
CPT/HCPCS: 36415; 36600; 71045; 76770; 80048; 80053; 80305; 81001; 82435; 82533; 82550; 82803; 82947; 82948; 83605; 83735; 83880; 84100; 84132; 84145; 84295; 84443; 84484; 85018; 85025; 85027; 85378; 85610; 85730; 87086; 87426; 87804; 93005; 93970; 94640; 94660; 94664; 99291; A4357; G0378; J0282; J1644; J1815; J1940; J2060; J2405; J2543; J3411; J3475; J3490; J7060; Q0169

== ENCOUNTER 2024-06-19 11:55 | Inpatient (IN) | payer BC, MEDICARE ==
[~2024-06-19] VITALS: Ht 175.3 cm; Wt 88.5 kg
[~2024-06-19 11:55] MED LIST changes: +AMIO200T44 PO; -DILT120C89 PO; +FURO20TA6 PO; +NICO-777 TD
[2024-06-19 12:22] LABS: BASOPHILS # (AUTO) 0.02 K/uL (0.00-0.20); BASOPHILS % (AUTO) 0.3 % (0.0-5.0); EOSINOPHILS # (AUTO) 0.16 K/uL (0.00-0.70); HEMATOCRIT 45.2 % (42-54); IMMATURE GRANULOCYTE ABSOLUTE 0.03 K/uL (0-1); LYMPHOCYTES # (AUTO) 1.1 K/uL (1.0-4.8); LYMPHOCYTES % (AUTO) 13.5 % (21.0-51.0); MEAN CORPUSCULAR HEMOGLOBIN 30.5 pg (27.0-33.0); MEAN CORPUSCULAR VOLUME 92.4 fL (79-99); MONOCYTES # (AUTO) 0.6 K/uL (0.1-1.0); MONOCYTES % (AUTO) 7.3 % (3.0-13.0); NEUTROPHILS % (AUTO) 76.5 % (40.0-77.0); PLATELET COUNT (AUTO) 233 K/uL (130-400); RED BLOOD CELL COUNT(AUTO) 4.89 MIL/uL (4.50-6.20); RED CELL DISTRIBUTION WIDTH 13.2 % (11.0-15.5); WHITE BLOOD COUNT (AUTO) 7.9 K/uL (4.8-10.8)
--- NOTE | 2024-06-19 12:29 | EKG ---
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
[2024-06-19 12:42] LABS: APPEARANCE,URINE CLEAR (CLEAR); BILIRUBIN,URINE NEGATIVE (NEGATIVE); COLOR,URINE COLORLESS (YELLOW); GLUCOSE, URINE (UA) NEGATIVE (NEGATIVE); KETONES,URINE NEGATIVE (NEGATIVE); LEUKOCYTE ESTERASE ,URINE 25 Leu/uL (NEGATIVE); NITRATE,URINE NEGATIVE (NEGATIVE); OCCULT BLOOD,URINE NEGATIVE (NEGATIVE); PH,URINE 6.5 (5.0-8.0); PROTEIN,URINE NEGATIVE (NEGATIVE); UROBILINOGEN,URINE 0.2 mg/dL (0.2-1.0)
[2024-06-19 12:48] LABS: CREATININE 0.8 mg/dL (0.5-1.3); POTASSIUM 4.4 mmol/L (3.5-5.1)
[2024-06-19 12:52] LABS: AMPHET/METH SCREEN,URINE POSITIVE (NEGATIVE); BARBITURATE SCREEN, URINE NEGATIVE (NEGATIVE); BENZODIAZEPINES SCREEN,URINE POSITIVE (NEGATIVE); CANNABINOID SCREEN,URINE POSITIVE (NEGATIVE); COCAINE SCREEN,URINE POSITIVE (NEGATIVE); OPIATE SCREEN,URINE NEGATIVE (NEGATIVE); PHENCYCLIDINE SCREEN,URINE NEGATIVE (NEGATIVE)
[2024-06-19 12:53] LABS: B-TYPE NATRIURETIC PEPTIDE 720 pg/mL (0-100)
[2024-06-19 13:16] LABS: RBC,URINE 0-1 /HPF (0-1)
--- NOTE | 2024-06-19 13:20 | NUR ---
PT WAS REPOSITIONED IN BED, REPORTS FEELING SHORT OF BREATH BECAUSE HIS NOSTRILS FEEL OCCLUDED
[2024-06-19 13:31] LABS: COVID19 (SARS ANTIGEN RAPID) PRESUMPTIVE NEGATIVE (NEGATIVE); INFLUENZA TYPE A Negative For Type A (NEGATIVE); INFLUENZA TYPE B Negative For Type B (NEGATIVE)
--- NOTE | 2024-06-19 13:53 | HMCIMG ---
CHEST 2VWS HISTORY: Shortness of breath COMPARISON: 06/02/2024 FINDINGS: Frontal and lateral projections of the chest were obtained. There is no acute pulmonary infiltrates or failure. Prominent interstitial markings are seen. There The heart is borderline enlarged. No evidence of aortic calcification is seen. Degenerative changes are seen of the thoracolumbar spine. IMPRESSION: 1. No acute pulmonary infiltrates.
--- NOTE | 2024-06-19 14:14 | ERN ---
General Chief Complaint: Shortness of Breath Stated Complaint: SOB Time Seen by MD: 12:03 Time Seen by Midlevel: 12:03 Source: patient History of Present Illness Initial Comments 64-year-old male presents to the ED by EMS due to shortness of breath. Patient reports onset one week. Denies further associated aided symptoms. Patient reports drug use, daily alcohol consumption, and daily smoking. PMHx HTN Allergies: Coded Allergies: No Known Drug Allergies (Unverified Allergy, Unknown, 04/16/24) Home Meds Active Scripts Nicotine (Nicotine Patch) 21 Mg/24 Hour Patch.td24, 21 MG TD DAILY for 30 Days, #30 PATCH 1 Refill Prov:RICK COX MD 04/29/24 Metoprolol Succinate (Toprol Xl) 50 Mg Tab.er.24h, 50 MG PO DAILY for 30 Days, #30 TAB 1 Refill Prov:RICK COX MD 04/29/24 Furosemide (Lasix 20Mg Tab) 20 Mg Tablet, 20 MG PO BID@09,17 for 30 Days, #60 TAB 1 Refill Prov:RICK COX MD 04/29/24 Apixaban (Eliquis) 5 Mg Tablet, 5 MG PO BID for 30 Days, #60 TAB 1 Refill Prov:RICK COX MD 04/29/24 Amiodarone HCl (Pacerone) 200 Mg Tablet, 400 MG PO BID for 30 Days, #30 TAB 1 Refill Take 400 mg PO bid for 7 days, then 200 mg PO daily Prov:RICK COX MD 04/29/24 Paroxetine HCl (Paxil) 10 Mg Tab, 10 MG PO DAILY for anxiety for 30 Days, #30 TAB 0 Refills Prov:ESTELITA HALL MD 04/19/24 Apixaban (Eliquis) 5 Mg Tablet, 5 MG PO BID for atrial flutter MDD 10 for 30 Days, #60 TAB Prov:ESTELITA HALL MD 04/19/24 Past Medical History Past Medical History: Hypertension Past Surgical History: None ROS Dictation Constitutional: Negative for fever,chills, and weight loss Eyes: Negative for injury, pain,redness, and discharge ENT: Negative for injury,pain or swelling Cardiovascular: Negative for chest pain, palpitations, and edema Respiratory: Positive for shortness of breath Negative for cough, and wheezing, Abdomen/GI: Negative for abdominal pain, nausea, vomiting, diarrhea, and constipation Back: Negative for injury and pain : Negative for painful urination, bleeding or discharge MS/Extremity: Negative for injury and deformity Skin: Negative for rash, and discoloration Neuro: Negative for headache, weakness, numbness, tingling, and seizure Psych: Negative for suicide ideation, homicidal ideation, and hallucinations Physical Exam Physical Exam Dictation General: awake, alert, no acute distress Head/Face: Normocephalic, atraumatic Eyes: normal conjunctiva ENT: oral cavity clear, oral mucosa moist Neck: Normal range of motion, supple Cardiovascular: RRR, normal S1/S2 Respiratory: CTAB, no respiratory distress, no rales or wheezes Abdomen: Soft, non-tender, non-distended, normal bowel sounds, no guarding or rebound. Skin: Warm, dry, normal turgor, no rash MS/Extremity: Pulses equal, no cyanosis, neurovascular intact, FROM Neuro: COAx4, GCS 15, no neurological deficits, Psych: Normal behavior, mood, and affect normal Results Laboratory and Microbiology Lab and Micro Result Laboratory Tests Test 06/19/24 12:15 06/19/24 12:23 06/19/24 12:35 White Blood Count 7.9 K/uL (4.8-10.8) Red Blood Count 4.89 MIL/uL (4.50-6.20) Hemoglobin 14.9 g/dL (14.0-18.0) Hematocrit 45.2 % (42-54) Mean Corpuscular Volume 92.4 fL (79-99) Mean Corpuscular Hemoglobin 30.5 pg (27.0-33.0) Mean Corpuscular Hemoglobin Concent 33.0 g/dL (32.0-36.0) Red Cell Distribution Width 13.2 % (11.0-15.5) Platelet Count 233 K/uL (130-400) Mean Platelet Volume 9.5 fL (7.5-10.5) Immature Granulocyte % (Auto) 0.4 % (0-1) Neutrophils (%) (Auto) 76.5 % (40.0-77.0) Lymphocytes (%) (Auto) 13.5 % (21.0-51.0) L Monocytes (%) (Auto) 7.3 % (3.0-13.0) Eosinophils (%) (Auto) 2.0 % (0.0-8.0) Basophils (%) (Auto) 0.3 % (0.0-5.0) Neutrophils # (Auto) 6.0 K/uL (1.8-7.7) Lymphocytes # (Auto) 1.1 K/uL (1.0-4.8) Monocytes # (Auto) 0.6 K/uL (0.1-1.0) Eosinophils # (Auto) 0.16 K/uL (0.00-0.70) Basophils # (Auto) 0.02 K/uL (0.00-0.20) Absolute Immature Granulocyte (auto 0.03 K/uL (0-1) Nucleated Red Blood Cells 0.0 % (0.0-0.19) Sodium Level 138 mmol/L (136-145) Potassium Level 4.4 mmol/L (3.5-5.1) Chloride Level 105 mmol/L (101-111) Carbon Dioxide Level 26 mmol/L (21-32) Blood Urea Nitrogen 10 mg/dL (7-18) Creatinine 0.8 mg/dL (0.5-1.3) Glomerular Filtration Rate Calc 98 mL/min (>90) Random Glucose 103 mg/dL (70-105) Total Calcium 9.1 mg/dL (8.5-10.1) Troponin I High Sensitivity 25 ng/L (4-75) B-Type Natriuretic Peptide 720 pg/mL (0-100) H Urine Color COLORLESS (YELLOW) Urine Appearance CLEAR (CLEAR) Urine pH 6.5 (5.0-8.0) Urine Specific [place] 1.005 (1.001-1.031) Urine Protein NEGATIVE mg/dL (NEGATIVE) Urine Glucose (UA) NEGATIVE mg/dL (NEGATIVE) Urine Ketones NEGATIVE mg/dL (NEGATIVE) Urine Occult Blood NEGATIVE (NEGATIVE) Urine Nitrate NEGATIVE (NEGATIVE) Urine Bilirubin NEGATIVE mg/dL (NEGATIVE) Urine Urobilinogen 0.2 mg/dL (0.2-1.0) Urine Leukocyte Esterase 25 Lu/uL (NEGATIVE) H Urine RBC 0-1 /HPF (0-1) Urine WBC 2-5 /HPF (0-1) H Urine Bacteria None /HPF (None Seen) Urine Opiates Screen NEGATIVE (NEGATIVE) Urine Barbiturates Screen NEGATIVE (NEGATIVE) Urine Phencyclidine Screen NEGATIVE (NEGATIVE) Urine Amphetamines Screen POSITIVE (NEGATIVE) H Urine Benzodiazepines Screen POSITIVE (NEGATIVE) H Urine Cocaine Screen POSITIVE (NEGATIVE) H Urine Marijuana (THC) Screen POSITIVE (NEGATIVE) H Influenza Type A Antigen Negative For Type A Influenza Type B Antigen Negative For Type B SARS-CoV-2 Antigen (Rapid) PRESUMPTIVE NEGATIVE Labs Reviewed?: Yes EKG/XRAY/US/CT/MRI EKG Comment Date: 06/19/2024 Time: 12:27 Rate: 126 EKG interpretation: Atrial flutter with 2:1 AV block, left atrial fascicular block, no STEMI Reviewed by ED Attending MDM MDM: Differential diagnosis: CHF exacerbation, pneumonia, drug abuse Rationale: 64-year-old male presents to the ED by EMS due to shortness of breath. Patient reports onset one week. Denies further associated aided symptoms. Patient reports drug use, daily alcohol consumption, and daily smoking. PMHx HTN Labs obtained indicate BNP 720. Drug screen positive for benzos, cocaine, marijuana, amphetamines. Patient currently on 2 L of O2 satting at 96%. Abnormal EKG. Patient was educated on findings and diagnosis and decision for admission. Patient verbalized understanding and agreed with admission. Case discussed with hospitalist who accepted admission. Previous outside records reviewed: Old ER visits. Risk of complication and/or morbidity or mortality of patient management: None Medications-Per medication reconciliation Need for hospitalization: Patient does meet criteria for hospitalization. Need for emergency major/minor surgery: No There are no social concerns with this patient. Prescription drug management Prescriptions will include symptomatic care Patient's prior external medical records from other ER visits were reviewed by me as indicated. Prior testing and results from previous visits were reviewed. Prior tests were taken into account with medical decision making and resource utilization, independent historian/historians were used to obtain complete medical history. I independently interpreted the test that were performed, results were reviewed by me and considered findings on radiology if ordered. Medical management and examination interpretation discussions were had by me with other qualified healthcare professionals as indicated for the patient's care. ED Course Orders Procedure Category Date Status Time Cbc With Differential LAB 06/19/24 Complete 12:07 Basic Metabolic Panel LAB 06/19/24 Complete 12:07 Urinalysis LAB 06/19/24 Complete W/Microscopic 12:07 B-Type Natriuretic LAB 06/19/24 Complete Peptide 12:07 Chest 2vws RAD 06/19/24 Resulted 12:07 Troponin I High LAB 06/19/24 Complete Sensitivity 12:07 12 Lead Ekg Tracing- EKG 06/19/24 Complete Technical 12:07 Covid19 (Sars Antigen LAB 06/19/24 Complete Rapid) 12:07 Influenza Type A & B, LAB 06/19/24 Complete Rapid 12:07 Drug Screen Urine LAB 06/19/24 Complete 12:18 Vital Signs Date Time Temp Pulse Resp B/P (MAP) Pulse Ox O2 Delivery O2 Flow Rate FiO2 06/19/24 13:17 123 20 107/73 97 Room Air* 0 21 06/19/24 11:57 97.9 117 22 134/86 95 Room Air 0 Critical Care Note Critical Time: 30 minutes Comments Critical Care Procedure Note Authorized and Performed by: Total critical care time: Approximately 36 minutes Due to a high probability of clinically significant, life threatening deterioration, the patient required my highest level of preparedness to intervene emergently and I personally spent this critical care time directly and personally managing the patient. This critical care time included obtaining a history; examining the patient; pulse oximetry; ordering and review of studies; arranging urgent treatment with development of a management plan; evaluation of patient's response to treatment; frequent reassessment; and, discussions with other providers. This critical care time was performed to assess and manage the high probability of imminent, life-threatening deterioration that could result in multi-organ failure. It was exclusive of separately billable procedures and treating other patients and teaching time. Please see MDM section and the rest of the note for further information on patient assessment and treatment. DX & DISP Disposition: Inpatient Decision to Admit Date: Jun 19, 2024 Departure Impression: Primary Impression: Acute exacerbation of CHF (congestive heart failure) Additional Impressions: Cocaine abuse, Atrial flutter, SOB (shortness of breath) Condition: Stable Referrals: MAEVE REDDY MD (PCP) I participated in the following activities of this patient's care: For this pat ient encounter, I reviewed the PA or IT INTERN documentation, treatment plan, and medical decision making. I did not have [id number] time with this patient. I will sign as the reviewing DrDenilson And agree with the treatment plan and disposition. BE ARGUELLO Jun 19, 2024 14:14
[2024-06-19] MEDS: furoSEMIDE 20MG VIAL IV SCH (14:47)
--- NOTE | 2024-06-19 15:21 | NUR ---
PT WAS SWITCHED OVER TO A HOSPITAL BED
--- NOTE | 2024-06-19 15:25 | HP ---
[facility] Date of Service: Jun 19, 2024 Time of Service: 15:12 HISTORY OF PRESENT ILLNESS: [64-year-old male with past medical history of advanced cardiomyopathy with LVEF of 25-30%, Chronic obstructive pulmonary disease, atrial flutter, anxiety, polysubstance abuse, who presented to the emergency department with complaints of shortness of breaths. Patient was recently admitted on 05/29/24 to 06/02/2024 where patient left against medical advice. Patient then had worsening shortness of breaths for which patient was noted with atrial flutter and also had withdrawals due to alcohol consumption. Patient today admitted of using crack cocaine, he was positive with amphetamines, benzos, cocaine and marijuana. Patient also admitted of drinking one beer yesterday. This morning patient stated that he started feeling weak as he has been feeling weak in the last few days. Patient admitted that he has been working hard at home trying to fix all his vehicles and bikes to make arrangement as he feels like he is going to " soon." In the ED laboratory data reviewed, BNP is 720, troponin I 25, chest x-ray showed no acute pulmonary infiltrates. His vital signs showed temperature 97.9, pulse 117-123, RR , BP 134/86, pulse oximetry 95% on room air. Patient was referred to the hospitalist for further evaluation management. ] REVIEW OF SYSTEMS CONSTITUTIONAL: Denies fevers, chills, or night sweats. No unintentional weight loss reported. NEUROLOGICAL: Denies headache, amaurosis fugax, motor weakness, sensory deficit, vertigo/spinning sensation, gait abnormalities, or tremors. ENT: No hearing loss, otalgia, otorrhea, rhinitis, rhinorrhea, hoarseness, or sore throat. CARDIOVASCULAR: Denies any exertional angina, dyspnea on exertion, orthopnea, paroxysmal nocturnal dyspnea, palpitations, life-threatening arrhythmias, claudication. PULMONARY: Denies any shortness of breath, cough, phlegm/sputum, hemoptysis, pleuritic chest pain. SLEEP: Denies morning headaches, daytime somnolence or napping. Denies difficulty falling asleep, staying asleep, waking from sleep. Denies knowledge of snoring. GASTROINTESTINAL: Denies any type of dysphagia to either liquids or solids. Denies nausea, vomiting, pyrosis, early satiety, abdominal pain, diarrhea, constipation, or changes in stool consistency or caliber. Denies coffee-ground emesis, hematemesis, hematochezia, or melanotic stools. GENITOURINARY: Denies frequency, urgency, nocturia, hematuria or incontinence (Storage/Irritative symptoms.) Low urinary stream, straining to void, urinary intermittency or hesitancy, splitting of the voiding stream, terminal dribbling. ENDOCRINOLOGIC: Denies polyuria, polydipsia, polyphagia or heat/cold intolerances. HEMATOLOGIC: Denies thrombophilia/previous clots, or coagulopathy/bleeding disorders. ONCOLOGIC: Denies personal history of malignancy. DERMATOLOGIC: Denies rashes or pruritus. PSYCHIATRIC: Denies any suicidal or homicidal ideation. Denies hallucinations. PAST MEDICAL HISTORY: [CHF, AFib ] PAST SURGICAL HISTORY: [ Noncontributory ] PAST SOCIAL HISTORY: [Daily tobacco abuse Occasional EtOH use Admits illicit drug use: Marijuana, cocaine, amphetamine, benzo Lives alone in his house ] FAMILY HISTORY: [Noncontributory ] Coded Allergies: No Known Drug Allergies (Unverified Allergy, Unknown, 04/16/24) PHYSICAL EXAM GENERAL APPEARANCE: The patient is awake, alert, and oriented, in no acute cardiopulmonary distress. NEUROLOGICAL: Cranial nerves II-XII grossly intact. Motor is 5/5 in bilateral upper and lower extremities proximal to distal. No sensory deficits. HEENT: Face is symmetric. Pupils are equal and reactive. Extraocular movements are intact. NECK: Supple. No JVD. No thyromegaly. No submental, submandibular, pre- /postauricular, occipital or supraclavicular lymphadenopathy. CHEST: Normal chest expansion. No Telemetry. LUNGS: Absence of any rales, rhonchi or any wheezing. CARDIOVASCULAR: Regular. S1 and S2 normal. No appreciable rubs, murmurs or gallops. ABDOMEN: Soft, nontender, and nondistended. There is no rebound, voluntary guarding, or rigidity. : Deferred. No Diaz. EXTREMITIES: Non-edematous and not cyanotic. No clubbing. Good capillary refill. SKIN: No skin breakdown. Vital Sign (Last 24 Hours) 06/19/24 06/19/24 11:57 13:17 Temp 97.9 Pulse 123 Resp 20 B/P (MAP) 107/73 Pulse Ox 97 O2 Delivery Room Air* O2 Flow Rate 0 FiO2 21 LABS: Laboratory: Test 06/19/24 12:35 06/19/24 12:23 06/19/24 12:15 Range/Units Influenza Type A Antigen Negative For Type A NEGATIVE Influenza Type B Antigen Negative For Type B NEGATIVE SARS-CoV-2 Antigen (Rapid) PRESUMPTIVE NEGATIVE NEGATIVE Urine Color COLORLESS YELLOW Urine Appearance CLEAR CLEAR Urine pH 6.5 5.0-8.0 Urine Specific [place] 1.005 1.001-1.031 Urine Protein NEGATIVE NEGATIVE mg/dL Urine Glucose (UA) NEGATIVE NEGATIVE mg/dL Urine Ketones NEGATIVE NEGATIVE mg/dL Urine Occult Blood NEGATIVE NEGATIVE Urine Nitrate NEGATIVE NEGATIVE Urine Bilirubin NEGATIVE NEGATIVE mg/dL Urine Urobilinogen 0.2 0.2-1.0 mg/dL Urine Leukocyte Esterase 25 H NEGATIVE Lu/uL Urine RBC 0-1 0-1 /HPF Urine WBC 2-5 H 0-1 /HPF Urine Bacteria None None Seen /HPF Urine Opiates Screen NEGATIVE NEGATIVE Urine Barbiturates Screen NEGATIVE NEGATIVE Urine Phencyclidine Screen NEGATIVE NEGATIVE Urine Amphetamines Screen POSITIVE H NEGATIVE Urine Benzodiazepines Screen POSITIVE H NEGATIVE Urine Cocaine Screen POSITIVE H NEGATIVE Urine Marijuana (THC) Screen POSITIVE H NEGATIVE White Blood Count 7.9 4.8-10.8 K/uL Red Blood Count 4.89 4.50-6.20 MIL/uL Hemoglobin 14.9 14.0-18.0 g/dL Hematocrit 45.2 42-54 % Mean Corpuscular Volume 92.4 79-99 fL Mean Corpuscular Hemoglobin 30.5 27.0-33.0 pg Mean Corpuscular Hemoglobin Concent 33.0 32.0-36.0 g/dL Red Cell Distribution Width 13.2 11.0-15.5 % Platelet Count 233 130-400 K/uL Mean Platelet Volume 9.5 7.5-10.5 fL Immature Granulocyte % (Auto) 0.4 0-1 % Neutrophils (%) (Auto) 76.5 40.0-77.0 % Lymphocytes (%) (Auto) 13.5 L 21.0-51.0 % Monocytes (%) (Auto) 7.3 3.0-13.0 % Eosinophils (%) (Auto) 2.0 0.0-8.0 % Basophils (%) (Auto) 0.3 0.0-5.0 % Neutrophils # (Auto) 6.0 1.8-7.7 K/uL Lymphocytes # (Auto) 1.1 1.0-4.8 K/uL Monocytes # (Auto) 0.6 0.1-1.0 K/uL Eosinophils # (Auto) 0.16 0.00-0.70 K/uL Basophils # (Auto) 0.02 0.00-0.20 K/uL Absolute Immature Granulocyte (auto 0.03 0-1 K/uL Nucleated Red Blood Cells 0.0 0.0-0.19 % Sodium Level 138 136-145 mmol/L Potassium Level 4.4 3.5-5.1 mmol/L Chloride Level 105 101-111 mmol/L Carbon Dioxide Level 26 21-32 mmol/L Blood Urea Nitrogen 10 7-18 mg/dL Creatinine 0.8 0.5-1.3 mg/dL Glomerular Filtration Rate Calc 98 >90 mL/min Random Glucose 103 70-105 mg/dL Total Calcium 9.1 8.5-10.1 mg/dL Troponin I High Sensitivity 25 4-75 ng/L B-Type Natriuretic Peptide 720 H 0-100 pg/mL Current Medications Medications (Trade) Dose Ordered Sig/Thai Route PRN Reason Start Time Stop Time Status Last Admin Dose Admin Furosemide (LASix 20MG VIAL) 20 mg Q12H IV 06/19/24 14:30 07/19/24 14:29 06/19/24 14:47 20 MG DIAGNOSTICS / RADIOLOGY: [ ] ASSESSMENT: [Acute hypoxemic respiratory failure, noted labored breathing and accessory muscle movement, POA Acute on chronic reduced EF congestive heart failure with exacerbation-EF of 25- 35% , POA Elevated BNP, POA Polysubstance abuse: Benzo, amphetamine, cocaine, marijuana History of AFib on Eliquis, current daily smoker, polysubstance abuse, CHF reduced EF History of chronic obstructive pulmonary disease ] PLAN: [ Admit to medical telemetry We will start patient on furosemide 20 mg IV q.12 hours We will start patient on oxygen supplementation to keep O2 sat greater than 92% We will start nebulizer treatment with ipratropium bromide q.6 hours PRN We will trend BNP We will trend troponin Patient will be on CIWA protocol We will resume his home medication, patient is on amiodarone 400 mg p.o. b.i.d., Eliquis5 mg p.o. b.i.d., metoprolol 25 mg XL, We will monitor electrolytes and replace as necessary GI and DVT prophylaxis We will repeat labs tomorrow Patient is a full code Case discussed with Dr. Cox, above plan was formulated ATTESTATION BY PHYSICIAN I have seen and examined the patient. I reviewed the documentation, medical decision making, and treatment plan as noted by the mid-level provider above. I agree with the findings and plan of care. RICK COX MD ] ATTESTATION BY PHYSICIAN I have seen and examined the patient. I reviewed the documentation, medical decision making, and treatment plan as noted by the mid-level provider above. I agree with the findings and plan of care. RICK COX MD, JANICE [facility] Jun 19, 2024 15:25
[2024-06-19] MEDS ORDERED: PoTASSium chl 10% ELIXIR 20MEQ 20 MEQ/15 ML UDCUP PO PRN (15:30)
[2024-06-19] MEDS ORDERED: MAGNESIUM 2GM PREMIX 50ML 50 ML IV PRN (15:30)
[2024-06-19] MEDS ORDERED: IpraTROPium 0.5 MG/2.5 ML INH IH PRN (15:30)
[2024-06-19] MEDS ORDERED: PHARMACY COMMUNICATION MISC PRN (15:30)
[2024-06-19] MEDS ORDERED: PoTASSium chloRIDE 20MEQ/100ML 100 ML IV PRN (15:30)
[2024-06-19] MEDS ORDERED: GLUCAGON 1MG KIT 1 MG ML IM PRN (15:30)
[2024-06-19] MEDS ORDERED: DEXTROSE 50%-WATER 50 ML DISP.SYRIN IV PRN (15:30)
[2024-06-19 15:31] VITALS: PULSE 120; RESP 20; O2SAT 97
[2024-06-19] MEDS: LORazepam 2 MG/ML 1 ML VIAL IVP PRN (16:15)
--- NOTE | 2024-06-19 19:17 | NUR ---
ROSELYN PALAFOX, SMASH HAND WAS CALLED TO ADVISE HER THAT PTS HR CONVERTED FROM AFIB RVR WITH A RATE IN THE 110-120 TO SINUS TACH AT A RATE OF 155. ADVISED THAT EKG WAS BEING DONE. ADVISED THAT AT THIS TIME PT IS NOT IN REPORTED DISTRESS, DENIES ANY CHEST PAIN, DIZZINESS, NAUSEA. PT REPORTS ONLY A SENSATION OF FEELING HOT. PER SMASH HAND, CONSULT DR. GONZALEZ AND HAVE MATH TEACHER MAKE FURTHER MEDICATION RECOMENDATIONS.
--- NOTE | 2024-06-19 19:33 | NUR ---
DR. GONZALEZ WAS CONSULTED ON PT WITH CRUZITO IN HR. NEW EKG WAS SENT TO DR. GONZALEZ. PER DR. GONZALEZ START PT ON LOPRESSOR 50 MG PO NOW AND TID. CALL HIM BACK WHEN MEDICATION HAS BEEN ADMINISTERED.
--- NOTE | 2024-06-19 19:51 | NUR ---
DR. GONZALEZ ADVISED THAT IF PTS BLOOD PRESSURE REMAINS LOW, 500 ML NS BOLUS MAY BE ADMINISTERED IF EF IS GREATER THAN 50%. ASKED IF THERE WAS AN OLD ECHO TO BE FOUND THAT COULD BE USED FOR INFORMATION.
--- NOTE | 2024-06-19 19:54 | NUR ---
DR. GONZALEZ WAS ADVISED THAT PT HAS AN ECHO FROM 05/30/24 WHERE EF IS SHOWING AT 25-30%. PER DR. GONZALEZ, HAVE A UDS RUN. DR. GONZAELZ WAS ADVISED THAT UDS WAS RUN ON THIS VISIT AND PT CAME BACK POSITIVE FOR MULTIPLE SUBSTANCES. PER DR. GONZALEZ, IT IS HIS BELIEF THAT THE HR IS RESPONSIDING TO THE COCAINE IN HIS SYSTEM AND ADMINISTERING BETA BLOCKERS WILL BE FURTHER DETRMINETAL AT THIS STAGE. PER DR. GONZALEZ, CANCEL LOPRESSOR ORDERS, DONT ADMINISTER FLUIDS, AND PROCEED WITH ADMINISTRATION OF ATIVAN FOR HR MANAGEMENT. IF ATIVAN IS INSUFICIENT, CONTACT DR. COX' TEAM FOR VALIUM RECOOMENDATIONS. IT IS NOT IN DR. GONZALEZ'S BELIEF THAT PT NEEDS AMIODARONE ADMINISTRAITON AT THIS TIME HE IS CURRENTLY NOT IN A-FIB.
--- NOTE | 2024-06-19 19:55 | NUR ---
SAVITA DEMPSEY WAS MADE AWARE OF DR. GONZALEZ'S RECOMENDATIONS AT THIS TIME. PT IS NOW CURRENTLY PRESENTING WITH A HR IN 130. STILL WITHOUT OBVIOUS DISTRESS.
[2024-06-19] MEDS ORDERED: metoPROLOL tartRATE 50 MG TAB PO ONE (20:00)
[2024-06-19] MEDS: chlordiazePOXIDE HCL 25 MG CAP PO PRN (20:48)
[2024-06-19] MEDS: APIXaban 5 MG TABLET PO SCH (20:49)
[2024-06-19] MEDS: AMIOdarone 200 MG TABLET PO SCH (20:49)
[2024-06-19 21:00] VITALS: BP 107/41; PULSE 125; RESP 18; TEMP 98
[2024-06-19] MEDS ORDERED: metoPROLOL tartRATE 50 MG TAB PO SCH (21:00)
--- NOTE | 2024-06-19 22:00 | NUR ---
PT IN BED, DENIES DISCOMFORT, NO SOB OR LABORED RESPIRATIONS. HEART RATE 118-130 WITH EPISODES OF 150 WITH MOVEMENT. PT MADE AWARE NOT TO GET OUT OF BED PER SELF.
[2024-06-20] VITALS (8 sets, daily range): BP systolic 109–132; BP diastolic 60–78; PULSE 59–137; RESP 18–24; TEMP 97.6–98.5; O2SAT 97–98
[2024-06-20 00:32] LABS: CREATININE 0.9 mg/dL (0.5-1.3); POTASSIUM 3.9 mmol/L (3.5-5.1)
[2024-06-20] MEDS: morPHINE 2 MG SYG IVP ONE (02:14)
--- NOTE | 2024-06-20 06:19 | EKG ---
[facility] Test Date: 2024-06-20 Test Time: 01:58:46 Pat Name: STEPHAN DAVIS Department: EDHIP Room: ED 04 Gender: M Bundle Tier And Labeler: [id number] : 1960 Requested By: MARTINEZ PALAFOX Order Number: [id number] Reading MD: Ashlee Molina Measurements Intervals [place] Rate: 145 P: 0 CA: 62 QRS: -62 QRSD: 99 T: 67 QT: 337 QTc: 525 Interpretive Statements Sinus tachycardia Left anterior fascicular block Nonspecific T abnormalities, inferior leads Prolonged QT interval Compared to ECG 06/19/2024 12:27:30 T-wave abnormality now present Prolonged QT interval now present Atrial flutter no longer present 2:1 AV block no longer present Electronically Signed On 06-20-2024 09:22:39 TOP LIFT TRIMMER by Ashlee Molina Please click the below link to view image of tracing.
[2024-06-20] MEDS: 0.9% NACL 250ML 250 ML IV SCH (06:29)
--- NOTE | 2024-06-20 06:48 | EKG ---
[facility] Test Date: 2024-06-19 Test Time: 19:19:02 Pat Name: STEPHAN DAVIS Department: EDHIP Room: ED 04 Gender: M Founding Partner: [id number] : 1960 Requested By: RICK COX Order Number: [id number] Reading MD: Ashlee Molina Measurements Intervals [place] Rate: 149 P: 0 LA: 61 QRS: -65 QRSD: 97 T: 63 QT: 340 QTc: 535 Interpretive Statements Sinus tachycardia Left anterior fascicular block Nonspecific T abnormalities, inferior leads Prolonged QT interval Compared to ECG 06/19/2024 12:27:30 T-wave abnormality now present Prolonged QT interval now present Sinus rhythm now present. Electronically Signed On 06-20-2024 09:25:34 RETIREMENT PLAN SPECIALIST by Ashlee Molina Please click the below link to view image of tracing.
[2024-06-20 07:30] LABS: BASOPHILS # (AUTO) 0.03 K/uL (0.00-0.20); BASOPHILS % (AUTO) 0.4 % (0.0-5.0); EOSINOPHILS # (AUTO) 0.16 K/uL (0.00-0.70); EOSINOPHILS % (AUTO) 2.3 % (0.0-8.0); IMMATURE GRANULOCYTE ABSOLUTE 0.03 K/uL (0-1); LYMPHOCYTES # (AUTO) 1.2 K/uL (1.0-4.8); LYMPHOCYTES % (AUTO) 16.5 % (21.0-51.0); MEAN CORPUSCULAR HEMOGLOBIN 30.7 pg (27.0-33.0); MEAN CORPUSCULAR HGB CONC 33.1 g/dL (32.0-36.0); MEAN CORPUSCULAR VOLUME 92.7 fL (79-99); MONOCYTES # (AUTO) 0.5 K/uL (0.1-1.0); MONOCYTES % (AUTO) 7.7 % (3.0-13.0); NEUTROPHILS # (AUTO) 5.1 K/uL (1.8-7.7); NEUTROPHILS % (AUTO) 72.7 % (40.0-77.0); PLATELET COUNT (AUTO) 254 K/uL (130-400); RED BLOOD CELL COUNT(AUTO) 5.18 MIL/uL (4.50-6.20); RED CELL DISTRIBUTION WIDTH 13.3 % (11.0-15.5)
--- NOTE | 2024-06-20 07:32 | PN ---
[facility] PROGRESS NOTE Date of Service: Jun 20, 2024 Time of Service: 07:32 SUBJECTIVE: [ ] Patient has been seen and examined during my rounding, still tachycardic, however alert oriented x3, denies dizziness, no headache, no chest pain, no shortness a breath, no nausea, vomiting, no abdominal discomfort. No family members at bedside during my visit. REVIEW OF SYSTEMS CONSTITUTIONAL: Denies fevers, chills, or night sweats. No unintentional weight loss reported. NEUROLOGICAL: Denies headache, amaurosis fugax, motor weakness, sensory deficit, vertigo/spinning sensation, gait abnormalities, or tremors. ENT: No hearing loss, otalgia, otorrhea, rhinitis, rhinorrhea, hoarseness, or sore throat. CARDIOVASCULAR: Denies any exertional angina, dyspnea on exertion, orthopnea, paroxysmal nocturnal dyspnea, palpitations, life-threatening arrhythmias, claudication. PULMONARY: Denies any shortness of breath, cough, phlegm/sputum, hemoptysis, pleuritic chest pain. SLEEP: Denies morning headaches, daytime somnolence or napping. Denies difficulty falling asleep, staying asleep, waking from sleep. Denies knowledge of snoring. GASTROINTESTINAL: Denies any type of dysphagia to either liquids or solids. Denies nausea, vomiting, pyrosis, early satiety, abdominal pain, diarrhea, constipation, or changes in stool consistency or caliber. Denies coffee-ground emesis, hematemesis, hematochezia, or melanotic stools. GENITOURINARY: Denies frequency, urgency, nocturia, hematuria or incontinence (Storage/Irritative symptoms.) Low urinary stream, straining to void, urinary intermittency or hesitancy, splitting of the voiding stream, terminal dribbling. ENDOCRINOLOGIC: Denies polyuria, polydipsia, polyphagia or heat/cold intolerances. HEMATOLOGIC: Denies thrombophilia/previous clots, or coagulopathy/bleeding disorders. ONCOLOGIC: Denies personal history of malignancy. DERMATOLOGIC: Denies rashes or pruritus. PSYCHIATRIC: Denies any suicidal or homicidal ideation. Denies hallucinations. PHYSICAL EXAM GENERAL APPEARANCE: The patient is awake, alert, and oriented, in no acute cardiopulmonary distress. NEUROLOGICAL: Cranial nerves II-XII grossly intact. Motor is 5/5 in bilateral upper and lower extremities proximal to distal. No sensory deficits. HEENT: Face is symmetric. Pupils are equal and reactive. Extraocular movements are intact. NECK: Supple. No JVD. No thyromegaly. No submental, submandibular, pre- /postauricular, occipital or supraclavicular lymphadenopathy. CHEST: Normal chest expansion. No Telemetry. LUNGS: Absence of any rales, rhonchi or any wheezing. CARDIOVASCULAR: Regular. S1 and S2 normal. No appreciable rubs, murmurs or gallops. ABDOMEN: Soft, nontender, and nondistended. There is no rebound, voluntary guarding, or rigidity. : Deferred. No Diaz. EXTREMITIES: Non-edematous and not cyanotic. No clubbing. Good capillary refill. SKIN: No skin breakdown. Vital Signs (last 8hr) Date Time Temp Pulse Resp B/P (MAP) Pulse Ox O2 Delivery O2 Flow Rate FiO2 06/20/24 07:14 137 24 N/A Room Air 21 06/20/24 04:00 98.1 130 18 132/72 99 Room Air 06/20/24 00:00 98.1 118 18 112/76 99 Nasal Cannula 2.0 LABS: Laboratory: Test 06/20/24 07:04 06/20/24 00:15 06/19/24 12:35 06/19/24 12:23 Range/Units White Blood Count 7.0 4.8-10.8 K/uL Red Blood Count 5.18 4.50-6.20 MIL/uL Hemoglobin 15.9 14.0-18.0 g/dL Hematocrit 48.0 42-54 % Mean Corpuscular Volume 92.7 79-99 fL Mean Corpuscular Hemoglobin 30.7 27.0-33.0 pg Mean Corpuscular Hemoglobin Concent 33.1 32.0-36.0 g/dL Red Cell Distribution Width 13.3 11.0-15.5 % Platelet Count 254 130-400 K/uL Mean Platelet Volume 9.7 7.5-10.5 fL Immature Granulocyte % (Auto) 0.4 0-1 % Neutrophils (%) (Auto) 72.7 40.0-77.0 % Lymphocytes (%) (Auto) 16.5 L 21.0-51.0 % Monocytes (%) (Auto) 7.7 3.0-13.0 % Eosinophils (%) (Auto) 2.3 0.0-8.0 % Basophils (%) (Auto) 0.4 0.0-5.0 % Neutrophils # (Auto) 5.1 1.8-7.7 K/uL Lymphocytes # (Auto) 1.2 1.0-4.8 K/uL Monocytes # (Auto) 0.5 0.1-1.0 K/uL Eosinophils # (Auto) 0.16 0.00-0.70 K/uL Basophils # (Auto) 0.03 0.00-0.20 K/uL Absolute Immature Granulocyte (auto 0.03 0-1 K/uL Nucleated Red Blood Cells 0.0 0.0-0.19 % Sodium Level 136 136-145 mmol/L Potassium Level 3.9 3.5-5.1 mmol/L Chloride Level 102 101-111 mmol/L Carbon Dioxide Level 27 21-32 mmol/L Blood Urea Nitrogen 10 7-18 mg/dL Creatinine 0.9 0.5-1.3 mg/dL Glomerular Filtration Rate Calc 95 >90 mL/min Random Glucose 107 H 70-105 mg/dL Total Calcium 9.3 8.5-10.1 mg/dL Magnesium Level 1.90 1.80-2.40 mg/dL Influenza Type A Antigen Negative For Type A NEGATIVE Influenza Type B Antigen Negative For Type B NEGATIVE SARS-CoV-2 Antigen (Rapid) PRESUMPTIVE NEGATIVE NEGATIVE Urine Color COLORLESS YELLOW Urine Appearance CLEAR CLEAR Urine pH 6.5 5.0-8.0 [address] [place] 1.005 1.001-1.031 Urine Protein NEGATIVE NEGATIVE mg/dL Urine Glucose (UA) NEGATIVE NEGATIVE mg/dL Urine Ketones NEGATIVE NEGATIVE mg/dL Urine Occult Blood NEGATIVE NEGATIVE Urine Nitrate NEGATIVE NEGATIVE Urine Bilirubin NEGATIVE NEGATIVE mg/dL Urine Urobilinogen 0.2 0.2-1.0 mg/dL Urine Leukocyte Esterase 25 H NEGATIVE Lu/uL Urine RBC 0-1 0-1 /HPF Urine WBC 2-5 H 0-1 /HPF Urine Bacteria None None Seen /HPF Urine Opiates Screen NEGATIVE NEGATIVE Urine Barbiturates Screen NEGATIVE NEGATIVE Urine Phencyclidine Screen NEGATIVE NEGATIVE Urine Amphetamines Screen POSITIVE H NEGATIVE Urine Benzodiazepines Screen POSITIVE H NEGATIVE Urine Cocaine Screen POSITIVE H NEGATIVE Urine Marijuana (THC) Screen POSITIVE H NEGATIVE Test 06/19/24 12:15 Range/Units Troponin I High Sensitivity 25 4-75 ng/L Current Medications Medications (Trade) Dose Ordered Sig/Thai Route PRN Reason Start Time Stop Time Status Last Admin Dose Admin Amiodarone HCl (pacERONE 200MG) 400 mg BID PO 06/19/24 21:00 07/19/24 20:59 06/19/24 20:49 400 MG Apixaban (EliquIS) 5 mg BID PO 06/19/24 21:00 07/19/24 20:59 06/19/24 20:49 5 MG Chlordiazepoxide HCl (LIBrium 25 MG CAP) 25 mg Q2H PRN PO ALCOHOL WITHDRAWAL PROTOCOL 06/19/24 15:30 06/26/24 15:29 06/19/24 20:48 25 MG Dextrose (D50w) 50 ml AD PRN IV HYPOGLYCEMIA PROTOCOL 06/19/24 15:30 07/19/24 15:29 Folic Acid (FOLic ACID 1 MG TABLET) 1 mg DAILY PO 06/20/24 09:00 06/22/24 09:01 Furosemide (LASix 20MG VIAL) 20 mg Q12H IV 06/19/24 14:30 07/19/24 14:29 Hold 06/20/24 02:13 20 MG Glucagon (Glucagon 1mg Kit) 1 mg AD PRN IM HYPOGLYCEMIA PROTOCOL 06/19/24 15:30 07/19/24 15:29 Ipratropium [place] (AtrovENT UD) 0.5 MG Q6H PRN IH SHORTNESS OF BREATH 06/19/24 15:30 07/19/24 15:29 Lorazepam (AtiVAN) 2 mg Q4H PRN IVP ALCOHOL WITHDRAWAL PROTOCOL 06/19/24 15:30 06/26/24 15:29 06/19/24 16:15 2 MG Magnesium Sulfate 50 ml @ 0 mls/hr PROTOCOL PRN IV MAGNESIUM PROTOCOL 06/19/24 15:30 07/19/24 15:29 Metoprolol Succinate (TopROL XL) 25 mg DAILY PO 06/20/24 09:00 06/19/24 19:40 DC Metoprolol Tartrate (loprESSOR) 50 mg TID PO 06/19/24 21:00 06/19/24 20:20 DC Multivitamins Therapeutic (Multivitamin Tablet) 1 tab DAILY PO 06/20/24 09:00 07/20/24 08:59 Pantoprazole Sodium (PROTonix 40MG TAB) 40 mg DAILY PO 06/20/24 09:00 07/20/24 08:59 Pharmacy Profile Note (Pharmacy Communication) 1 each PROTOCOL PRN MISC ETOH Withdrawal Score changes 06/19/24 15:30 06/26/24 15:29 Potassium Chloride 100 ml @ 100 mls/hr AD PRN IV POTASSIUM PROTOCOL 06/19/24 15:30 07/19/24 15:29 Potassium Chloride (K-Dur/Klor-Con 20meq) 20 meq AD PRN PO POTASSIUM PROTOCOL 06/19/24 15:30 07/19/24 15:29 Potassium Chloride (KCl 10% Elixir 20meq/15ml) 20 meq AD PRN PO POTASSIUM PROTOCOL 06/19/24 15:30 07/19/24 15:29 Sodium Chloride 250 ml @ 0 mls/hr Q0M IV 06/20/24 06:00 06/20/24 08:00 06/20/24 06:29 225 MLS/HR Thiamine HCl (Vitamin B-1) 100 mg DAILY IM 06/20/24 09:00 06/22/24 09:01 DIAGNOSTICS / RADIOLOGY: [ ] ASSESSMENT: [Acute hypoxemic respiratory failure, noted labored breathing and accessory muscle movement, POA Acute on chronic reduced EF congestive heart failure with exacerbation-EF of 25- 35% , POA Elevated BNP, POA Polysubstance abuse: Benzo, amphetamine, cocaine, marijuana History of AFib on Eliquis, current daily smoker, polysubstance abuse, CHF reduced EF History of chronic obstructive pulmonary disease PLAN: Patient to be upgraded to the PCU Continue potline monitor Start the patient on Cardizem drip Continue CIWA protocol Cardiology consultation requested, follow input and recommendation Continue the patient on Eliquis 5 mg p.o. b.i.d. Close monitoring of the patient's electrolytes, replace IV per protocol A.m. labs Counseling provided in terms of cocaine abuse cessation GI and DVT prophylaxis Plan of action discussed, all questions answered, agreed and understood the information provided. RICK COX MD Jun 20, 2024 07:32
[2024-06-20 07:37] LABS: ALBUMIN 3.3 g/dL (3.5-5.0); BILIRUBIN,TOTAL 0.8 mg/dL (0.2-1.0); CREATININE 0.9 mg/dL (0.5-1.3); POTASSIUM 3.9 mmol/L (3.5-5.1); TOTAL PROTEIN, SERUM 7.6 g/dL (6.0-8.3)
[2024-06-20 08:06] LABS: B-TYPE NATRIURETIC PEPTIDE 607 pg/mL (0-100)
--- NOTE | 2024-06-20 08:09 | NUR ---
DR. COX ROUNDED AT BEDSIDE NEW ORDERS FOR A CARDIZEM DRIP, AND PPCU
[2024-06-20] MEDS: dilTIAZem 25MG INJ IVP PRN (08:22)
[2024-06-20] MEDS ORDERED: dilTIAZem 125 MG/25 ML INJ 125 MG in 0.9%NACL 100ML 100 ML IV PRN (08:30)
[2024-06-20] MEDS: dilTIAZem 125MG+100 ML NS 125 ML IV ONE (08:37)
[2024-06-20] MEDS ORDERED: metOPROLol sucCINATE 25 MG TAB.SR.24H PO SCH (09:00)
[2024-06-20] MEDS: FOLic ACID 1 MG TABLET PO SCH (09:33)
[2024-06-20] MEDS: PANTOPrazole 40 MG TAB DR PO SCH (09:33)
[2024-06-20] MEDS: MULTIVITAMIN TABLET PO SCH (09:33)
[2024-06-20] MEDS: THIAMINE HCL 100 MG/ML 2ML VIAL IM SCH (09:33)
[2024-06-20] MEDS ORDERED: PHARMACY COMMUNICATION MISC SCH (11:00)
[2024-06-21] VITALS (10 sets, daily range): BP systolic 110–141; BP diastolic 49–81; PULSE 68–87; RESP 18–26; TEMP 97.4–98.6; O2SAT 96–98
[2024-06-21 04:34] LABS: HEMATOCRIT 45.9 % (42-54); MEAN CORPUSCULAR HEMOGLOBIN 30.3 pg (27.0-33.0); MEAN CORPUSCULAR HGB CONC 33.1 g/dL (32.0-36.0); MEAN CORPUSCULAR VOLUME 91.6 fL (79-99); RED BLOOD CELL COUNT(AUTO) 5.01 MIL/uL (4.50-6.20); RED CELL DISTRIBUTION WIDTH 13.6 % (11.0-15.5); WHITE BLOOD COUNT (AUTO) 6.8 K/uL (4.8-10.8)
[2024-06-21 04:47] LABS: ALBUMIN 3.1 g/dL (3.5-5.0); BILIRUBIN,TOTAL 0.5 mg/dL (0.2-1.0); CREATININE 1.2 mg/dL (0.5-1.3); MAGNESIUM 1.6 mg/dL (1.80-2.40); POTASSIUM 3.6 mmol/L (3.5-5.1); TOTAL PROTEIN, SERUM 7.1 g/dL (6.0-8.3)
--- NOTE | 2024-06-21 08:32 | PN ---
[facility] PROGRESS NOTE Date of Service: Jun 21, 2024 Time of Service: 08:32 SUBJECTIVE: [ ] Patient has been seen and examined during my rounding, still tachycardic, however alert oriented x3, denies dizziness, no headache, no chest pain, no shortness a breath, no nausea, vomiting, no abdominal discomfort. No family members at bedside during my visit. 06/21 the patient has been seen and examined today during my rounding, still in the PCU, electronic device monitor, Cardizem drip. He is alert oriented x3, denied ches t pain, no shortness a breath, no nausea, no vomiting, multiple family members at bedside, updated. REVIEW OF SYSTEMS CONSTITUTIONAL: Denies fevers, chills, or night sweats. No unintentional weight loss reported. NEUROLOGICAL: Denies headache, amaurosis fugax, motor weakness, sensory deficit, vertigo/spinning sensation, gait abnormalities, or tremors. ENT: No hearing loss, otalgia, otorrhea, rhinitis, rhinorrhea, hoarseness, or sore throat. CARDIOVASCULAR: Denies any exertional angina, dyspnea on exertion, orthopnea, paroxysmal nocturnal dyspnea, palpitations, life-threatening arrhythmias, claudication. PULMONARY: Denies any shortness of breath, cough, phlegm/sputum, hemoptysis, pleuritic chest pain. SLEEP: Denies morning headaches, daytime somnolence or napping. Denies difficulty falling asleep, staying asleep, waking from sleep. Denies knowledge of snoring. GASTROINTESTINAL: Denies any type of dysphagia to either liquids or solids. Denies nausea, vomiting, pyrosis, early satiety, abdominal pain, diarrhea, constipation, or changes in stool consistency or caliber. Denies coffee-ground emesis, hematemesis, hematochezia, or melanotic stools. GENITOURINARY: Denies frequency, urgency, nocturia, hematuria or incontinence (Storage/Irritative symptoms.) Low urinary stream, straining to void, urinary intermittency or hesitancy, splitting of the voiding stream, terminal dribbling. ENDOCRINOLOGIC: Denies polyuria, polydipsia, polyphagia or heat/cold intolerances. HEMATOLOGIC: Denies thrombophilia/previous clots, or coagulopathy/bleeding disorders. ONCOLOGIC: Denies personal history of malignancy. DERMATOLOGIC: Denies rashes or pruritus. PSYCHIATRIC: Denies any suicidal or homicidal ideation. Denies hallucinations. PHYSICAL EXAM GENERAL APPEARANCE: The patient is awake, alert, and oriented, in no acute cardiopulmonary distress. NEUROLOGICAL: Cranial nerves II-XII grossly intact. Motor is 5/5 in bilateral upper and lower extremities proximal to distal. No sensory deficits. HEENT: Face is symmetric. Pupils are equal and reactive. Extraocular movements are intact. NECK: Supple. No JVD. No thyromegaly. No submental, submandibular, pre- /postauricular, occipital or supraclavicular lymphadenopathy. CHEST: Normal chest expansion. No Telemetry. LUNGS: Absence of any rales, rhonchi or any wheezing. CARDIOVASCULAR: Regular. S1 and S2 normal. No appreciable rubs, murmurs or gallops. ABDOMEN: Soft, nontender, and nondistended. There is no rebound, voluntary guarding, or rigidity. : Deferred. No Diaz. EXTREMITIES: Non-edematous and not cyanotic. No clubbing. Good capillary refill. SKIN: No skin breakdown. Vital Signs (last 8hr) Date Time Temp Pulse Resp B/P (MAP) Pulse Ox O2 Delivery O2 Flow Rate FiO2 06/21/24 07:42 87 20 N/A Room Air 21 06/21/24 07:00 98.2 87 26 141/54 94 Room Air 06/21/24 04:26 98.6 68 18 110/64 97 Room Air LABS: Laboratory: Test 06/21/24 04:11 06/20/24 07:04 06/19/24 12:35 06/19/24 12:23 Range/Units White Blood Count 6.8 4.8-10.8 K/uL Red Blood Count 5.01 4.50-6.20 MIL/uL Hemoglobin 15.2 14.0-18.0 g/dL Hematocrit 45.9 42-54 % Mean Corpuscular Volume 91.6 79-99 fL Mean Corpuscular Hemoglobin 30.3 27.0-33.0 pg Mean Corpuscular Hemoglobin Concent 33.1 32.0-36.0 g/dL Red Cell Distribution Width 13.6 11.0-15.5 % Platelet Count 224 130-400 K/uL Mean Platelet Volume 9.5 7.5-10.5 fL Nucleated Red Blood Cells 0.0 0.0-0.19 % Sodium Level 136 136-145 mmol/L Potassium Level 3.6 3.5-5.1 mmol/L Chloride Level 100 L 101-111 mmol/L Carbon Dioxide Level 28 21-32 mmol/L Blood Urea Nitrogen 10 7-18 mg/dL Creatinine 1.2 0.5-1.3 mg/dL Glomerular Filtration Rate Calc 67 >90 mL/min Random Glucose 104 70-105 mg/dL Total Calcium 8.8 8.5-10.1 mg/dL Magnesium Level 1.60 L 1.80-2.40 mg/dL Total Bilirubin 0.5 # 0.2-1.0 mg/dL Aspartate Amino Transf (AST/SGOT) 14 10-37 U/L Alanine Aminotransferase (ALT/SGPT) 13 12-78 U/L Alkaline Phosphatase 76 50-136 U/L Total Protein 7.1 6.0-8.3 g/dL Albumin 3.1 L 3.5-5.0 g/dL Immature Granulocyte % (Auto) 0.4 0-1 % Neutrophils (%) (Auto) 72.7 40.0-77.0 % Lymphocytes (%) (Auto) 16.5 L 21.0-51.0 % Monocytes (%) (Auto) 7.7 3.0-13.0 % Eosinophils (%) (Auto) 2.3 0.0-8.0 % Basophils (%) (Auto) 0.4 0.0-5.0 % Neutrophils # (Auto) 5.1 1.8-7.7 K/uL Lymphocytes # (Auto) 1.2 1.0-4.8 K/uL Monocytes # (Auto) 0.5 0.1-1.0 K/uL Eosinophils # (Auto) 0.16 0.00-0.70 K/uL Basophils # (Auto) 0.03 0.00-0.20 K/uL Absolute Immature Granulocyte (auto 0.03 0-1 K/uL B-Type Natriuretic Peptide 607 H 0-100 pg/mL Influenza Type A Antigen Negative For Type A NEGATIVE Influenza Type B Antigen Negative For Type B NEGATIVE SARS-CoV-2 Antigen (Rapid) PRESUMPTIVE NEGATIVE NEGATIVE Urine Color COLORLESS YELLOW Urine Appearance CLEAR CLEAR Urine pH 6.5 5.0-8.0 Urine Specific [place] 1.005 1.001-1.031 Urine Protein NEGATIVE NEGATIVE mg/dL Urine Glucose (UA) NEGATIVE NEGATIVE mg/dL Urine Ketones NEGATIVE NEGATIVE mg/dL Urine Occult Blood NEGATIVE NEGATIVE Urine Nitrate NEGATIVE NEGATIVE Urine Bilirubin NEGATIVE NEGATIVE mg/dL Urine Urobilinogen 0.2 0.2-1.0 mg/dL Urine Leukocyte Esterase 25 H NEGATIVE Lu/uL Urine RBC 0-1 0-1 /HPF Urine WBC 2-5 H 0-1 /HPF Urine Bacteria None None Seen /HPF Urine Opiates Screen NEGATIVE NEGATIVE Urine Barbiturates Screen NEGATIVE NEGATIVE Urine Phencyclidine Screen NEGATIVE NEGATIVE Urine Amphetamines Screen POSITIVE H NEGATIVE Urine Benzodiazepines Screen POSITIVE H NEGATIVE Urine Cocaine Screen POSITIVE H NEGATIVE Urine Marijuana (THC) Screen POSITIVE H NEGATIVE Test 06/19/24 12:15 Range/Units Troponin I High Sensitivity 25 4-75 ng/L Current Medications Medications (Trade) Dose Ordered Sig/Thai Route PRN Reason Start Time Stop Time Status Last Admin Dose Admin Amiodarone HCl (pacERONE 200MG) 400 mg BID PO 06/19/24 21:00 06/20/24 11:30 DC 06/20/24 09:33 400 MG Apixaban (EliquIS) 5 mg BID PO 06/19/24 21:00 07/19/24 20:59 06/20/24 23:22 5 MG Chlordiazepoxide HCl (LIBrium 25 MG CAP) 25 mg Q2H PRN PO ALCOHOL WITHDRAWAL PROTOCOL 06/19/24 15:30 06/26/24 15:29 06/20/24 11:40 25 MG Dextrose (D50w) 50 ml AD PRN IV HYPOGLYCEMIA PROTOCOL 06/19/24 15:30 07/19/24 15:29 Diltiazem HCl (CARDIzem 25MG INJ) 18.15 mg ONCE PRN IVP CARDIZEM PROTOCOL 06/20/24 08:30 06/20/24 08:30 DC 06/20/24 08:22 18.15 MG Diltiazem HCl 125 mg/Sodium Chloride 125 ml @ 0 mls/hr AD PRN IV CARDIZEM PROTOCOL 06/20/24 08:30 07/20/24 08:29 Folic Acid (FOLic ACID 1 MG TABLET) 1 mg DAILY PO 06/20/24 09:00 06/22/24 09:01 06/20/24 09:33 1 MG Furosemide (LASix 20MG VIAL) 20 mg Q12H IV 06/19/24 14:30 06/20/24 08:16 DC 06/20/24 02:13 20 MG Glucagon (Glucagon 1mg Kit) 1 mg AD PRN IM HYPOGLYCEMIA PROTOCOL 06/19/24 15:30 07/19/24 15:29 Ipratropium [place] (AtrovENT UD) 0.5 MG Q6H PRN IH SHORTNESS OF BREATH 06/19/24 15:30 07/19/24 15:29 Lorazepam (AtiVAN) 2 mg Q4H PRN IVP ALCOHOL WITHDRAWAL PROTOCOL 06/19/24 15:30 06/26/24 15:29 06/19/24 16:15 2 MG Magnesium Sulfate 50 ml @ 0 mls/hr PROTOCOL PRN IV MAGNESIUM PROTOCOL 06/19/24 15:30 07/19/24 15:29 Metoprolol Succinate (TopROL XL) 25 mg DAILY PO 06/20/24 09:00 06/19/24 19:40 DC Metoprolol Tartrate (loprESSOR) 50 mg TID PO 06/19/24 21:00 06/19/24 20:20 DC Multivitamins Therapeutic (Multivitamin Tablet) 1 tab DAILY PO 06/20/24 09:00 07/20/24 08:59 06/20/24 09:33 1 TAB Pantoprazole Sodium (PROTonix 40MG TAB) 40 mg DAILY PO 06/20/24 09:00 07/20/24 08:59 06/20/24 09:33 40 MG Pharmacy Profile Note (Pharmacy Communication) 1 each AD MISC 06/20/24 11:00 06/20/24 10:39 DC Pharmacy Profile Note (Pharmacy Communication) 1 each PROTOCOL PRN MISC ETOH Withdrawal Score changes 06/19/24 15:30 06/26/24 15:29 Potassium Chloride 100 ml @ 100 mls/hr AD PRN IV POTASSIUM PROTOCOL 06/19/24 15:30 07/19/24 15:29 Potassium Chloride (K-Dur/Klor-Con 20meq) 20 meq AD PRN PO POTASSIUM PROTOCOL 06/19/24 15:30 07/19/24 15:29 Potassium Chloride (KCl 10% Elixir 20meq/15ml) 20 meq AD PRN PO POTASSIUM PROTOCOL 06/19/24 15:30 07/19/24 15:29 Sodium Chloride 250 ml @ 0 mls/hr Q0M IV 06/20/24 06:00 06/20/24 08:00 DC 06/20/24 06:29 225 MLS/HR Thiamine HCl (Vitamin B-1) 100 mg DAILY IM 06/20/24 09:00 06/22/24 09:01 06/20/24 09:33 100 MG DIAGNOSTICS / RADIOLOGY: [ ] ASSESSMENT: [Acute hypoxemic respiratory failure, noted labored breathing and accessory muscle movement, POA Acute on chronic reduced EF congestive heart failure with exacerbation-EF of 25- 35% , POA Elevated BNP, POA Polysubstance abuse: Benzo, amphetamine, cocaine, marijuana History of AFib on Eliquis, current daily smoker, polysubstance abuse, CHF reduced EF History of chronic obstructive pulmonary disease PLAN: Patient to be upgraded to the PCU Continue electronic device monitor Continue the patient on Cardizem drip, weaned off. Continue CIWA protocol Cardiology consultation requested, follow input and recommendation Continue the patient on Eliquis 5 mg p.o. b.i.d. Close monitoring of the patient's electrolytes, replace IV per protocol A.m. labs Counseling provided in terms of cocaine abuse cessation GI and DVT prophylaxis Disposition: Remains admitted to the PCU, continue telemetry monitoring, continue Cardizem drip, wean off, start Cardizem 30 mg p.o. q.8 hours, follow Cardiology recommendations. Advised to abstain from amphetamine, benzodiazepine, cocaine and marijuana abuse. Plan of action discussed, all questions answered, agreed and understood the information provided. RICK COX MD Jun 21, 2024 08:32
--- NOTE | 2024-06-21 16:15 | NUR ---
anxiety attack pt complain of severe anxiety states he feels like he wants to rip all the iv s out and monitors off pt hyperventilating thrashing in bed
[2024-06-21] MEDS: dilTIAZem 60MG TAB PO SCH (16:23)
[2024-06-21] MEDS: PoTASSium chloRIDE 20MEQ ER 20 MEQ ERTAB PO PRN (16:24)
[2024-06-21] MEDS: MAGNESIUM 2GM PREMIX 50ML 50 ML IV SCH (16:25)
[2024-06-21] MEDS: LIDOCAINE 5% TOPICAL PATCH TP SCH (16:49)
--- NOTE | 2024-06-21 17:38 | NUR ---
D/C PLAN CECY performed chart review. Patient is well known to . Patient with history of medical noncompliance and drug abuse. Patient lives alone. No home services or DME. has offered drug and alcohol rehab resources in the past and patient has repeatedly declined. He has been to drug rehab in the past and had a bad experience. Plan is to return home to same setting. His sister usually provides a ride at discharge. Addendum: 06/21/24 at 1740 by PEDRO LUIS BECK Amended: Links added.
[2024-06-21] MEDS ORDERED: dilTIAZem 60MG TAB PO SCH (21:00)
[2024-06-22 03:49] LABS: HEMATOCRIT 45.9 % (42-54); MEAN CORPUSCULAR HEMOGLOBIN 30.4 pg (27.0-33.0); MEAN CORPUSCULAR HGB CONC 32.7 g/dL (32.0-36.0); MEAN CORPUSCULAR VOLUME 92.9 fL (79-99); RED BLOOD CELL COUNT(AUTO) 4.94 MIL/uL (4.50-6.20); RED CELL DISTRIBUTION WIDTH 13.5 % (11.0-15.5); WHITE BLOOD COUNT (AUTO) 5.3 K/uL (4.8-10.8)
[2024-06-22 04:10] LABS: ALBUMIN 2.9 g/dL (3.5-5.0); BILIRUBIN,TOTAL 0.4 mg/dL (0.2-1.0); CREATININE 0.9 mg/dL (0.5-1.3); TOTAL PROTEIN, SERUM 6.9 g/dL (6.0-8.3)
[2024-06-22 04:15] LABS: MAGNESIUM 1.9 mg/dL (1.80-2.40)
[2024-06-22 05:47] VITALS: BP 106/60; PULSE 70; RESP 20; TEMP 98.1
[2024-06-22] MEDS ORDERED: DILT60TA3 PO (07:09)
--- NOTE | 2024-06-22 07:16 | DS ---
Discharge Summary Hospital Course Summary: 64-year-old male presented to the ED with shortness of breath, he was noted to be in atrial fibrillation with RVR. He was recently admitted earlier in the month with the same symptoms. At that time he had a positive urine drug screen. A repeat UDS was ordered and he was positive for amphetamines, cocaine, opiate, and marijuana. He was admitted and started on a Cardizem drip. His home beta alex was discontinued as that is contraindicated and chronic cocaine use. Initially Dr. Hernandez from [place] was consulted however he noted the patient was recently seen by Dr. Go and recommended continuity of care. After several days on IV Cardizem he was rate controlled and weaned back to oral medication. By hospital day three he was rate controlled and asymptomatic. An extensive amount of time was spent counseling the patient against further drug abuse. Was offered transitioned to drug rehab however he refused stating that it does not work. He will be discharged home to follow up with his PCP and Cardiology. . Measurement Supervisor(s): Cardiology Procedure(s): CHEST 2VWS HISTORY: Shortness of breath COMPARISON: 06/02/2024 FINDINGS: Frontal and lateral projections of the chest were obtained. There is no acute pulmonary infiltrates or failure. Prominent interstitial markings are seen. There The heart is borderline enlarged. No evidence of aortic calcification is seen. Degenerative changes are seen of the thoracolumbar spine. IMPRESSION: 1. No acute pulmonary infiltrates. Assessment/Plan: Acute hypoxemic respiratory failure, noted labored breathing and accessory muscle movement, resolved POA Acute on chronic reduced EF congestive heart failure with exacerbation-EF of 25- 35%, POA Elevated BNP, POA Polysubstance abuse: Benzo, amphetamine, cocaine, marijuana History of AFib on Eliquis, current daily smoker, polysubstance abuse, CHF reduced EF History of chronic obstructive pulmonary disease Discharge Instructions: Follow up with PCP in 3-7 days Follow up with stunt driver, Dr. Go, in 1 week Home Medications: Active Scripts Nicotine (Nicotine Patch) 21 Mg/24 Hour Patch.td24, 21 MG TD DAILY for 30 Days, #30 PATCH 1 Refill Prov:RICK COX MD 04/29/24 Metoprolol Succinate (Toprol Xl) 50 Mg Tab.er.24h, 50 MG PO DAILY for 30 Days, #30 TAB 1 Refill Prov:RICK COX MD 04/29/24 Furosemide (Lasix 20Mg Tab) 20 Mg Tablet, 20 MG PO BID@09,17 for 30 Days, #60 TAB 1 Refill Prov:RICK COX MD 04/29/24 Apixaban (Eliquis) 5 Mg Tablet, 5 MG PO BID for 30 Days, #60 TAB 1 Refill Prov:RICK COX MD 04/29/24 Amiodarone HCl (Pacerone) 200 Mg Tablet, 400 MG PO BID for 30 Days, #30 TAB 1 Refill Take 400 mg PO bid for 7 days, then 200 mg PO daily Prov:RICK COX MD 04/29/24 Paroxetine HCl (Paxil) 10 Mg Tab, 10 MG PO DAILY for anxiety for 30 Days, #30 TAB 0 Refills Prov:ESTELITA HALL MD 04/19/24 Apixaban (Eliquis) 5 Mg Tablet, 5 MG PO BID for atrial flutter MDD 10 for 30 Days, #60 TAB Prov:ESTELITA HALL MD 04/19/24 New Medications: Diltiazem HCl (Diltiazem HCl) 60 Mg Tablet 30 MG PO Q8H5, #90 TAB 0 Refills Continued Medications: Apixaban (Eliquis) 5 Mg Tablet 5 MG PO BID for 30 Days, #60 TAB 1 Refill Furosemide (Lasix 20Mg Tab) 20 Mg Tablet 20 MG PO BID@09,17 for 30 Days, #60 TAB 1 Refill Nicotine (Nicotine Patch) 21 Mg/24 Hour Patch.td24 21 MG TD DAILY for 30 Days, #30 PATCH 1 Refill Paroxetine HCl (Paxil) 10 Mg Tab 10 MG PO DAILY for anxiety for 30 Days, #30 TAB 0 Refills Discontinued Medications: Amiodarone HCl (Pacerone) 200 Mg Tablet 400 MG PO BID for 30 Days, #30 TAB 1 Refill Take 400 mg PO bid for 7 days, then 200 mg PO daily Apixaban (Eliquis) 5 Mg Tablet 5 MG PO BID for atrial flutter MDD 10 for 30 Days, #60 TAB Metoprolol Succinate (Toprol Xl) 50 Mg Tab.er.24h 50 MG PO DAILY for 30 Days, #30 TAB 1 Refill Time spent arranging discharge: 31-60 minutes SANDY GUTHRIE MD Jun 22, 2024 07:16
[2024-06-22 07:35] VITALS: BP 97/70; PULSE 76; RESP 18; TEMP 97.7
[2024-06-22 08:04] VITALS: O2SAT 96
--- NOTE | 2024-06-22 10:10 | NUR ---
discussed discharge instructions with pt and family members voices understanding aware of medications to start aware of medications to discontinue
== END 2024-06-22 10:20 | disposition home or self-care (01) | DRG 291 ==
LOC: EDH 11:55 → EDHIP 14:10 → 2AH 06-20 16:31
PROVIDERS: ADMIT Internal Medicine; ATTEND Internal Medicine
DX: I11.0 Hypertensive heart disease with heart failure (principal); I50.23 Acute on chronic systolic (congestive) heart failure; J96.01 Acute respiratory failure with hypoxia; I48.92 Unspecified atrial flutter; I42.9 Cardiomyopathy, unspecified; Q79.8 Other congenital malformations of musculoskeletal system; F12.10 Cannabis abuse, uncomplicated; F14.10 Cocaine abuse, uncomplicated; F17.200 Nicotine dependence, unspecified, uncomplicated; I48.91 Unspecified atrial fibrillation; J44.9 Chronic obstructive pulmonary disease, unspecified; F41.9 Anxiety disorder, unspecified
CPT/HCPCS: 36415; 71046; 80048; 80053; 80305; 81001; 83735; 83880; 84484; 85025; 85027; 87426; 87804; 93005; 94664; 96374; 96375; 99291; G0378; J1940; J2060; J2270; J3411; J3475; J3490